=== PATIENT | female | born 1955 | race Caucasian/White ===

== ENCOUNTER 2025-07-12 20:18 | Observation (INO) | payer OTHER, SELFPAY ==
--- OUTSIDE RECORDS SUMMARY | 2025-07-11 21:28 | XMS_ITS | Encounter Summary ---
Author Organization [facility] Address [address] [place] [address] Care Team Providers Care Veterinary Laboratory Diagnostician Name Role Phone Paxton Leal MD Primary Care Provider Jas Rosales MD Unavailable [phone] Sebastian Bailey MD Unavailable Unavailable Aaron Dang MD Unavailable [phone] Reason for Visit * Reason Comments Chest Pain Pt BIBEMS from home w complaint of CP and SOB x25 minutes. NSR on EMS EKG. Encounter Details Date Type Department Care Team (Late st Contact Info) Description 07/11/2025 9:28 PM TOOL AND PRODUCTION PLANNER - 07/11/2025 9:29 PM TOOL AND PRODUCTION PLANNER Emergency ER at [address] [address] Discharge Disposition: Left Against Medical Advice/Discontinued Care Social History Tobacco Use Types Packs/Day Years Used Date Smoking Tobacco: Never Smokeless Tobacco: Never Alcohol Use Standard Drinks/Week Comments Yes 2 (1 standard drink = 0.6 oz pur e alcohol) rarely Hunger Vital Sign Answer Date Recorded Within the past 12 months, y ou worried that your food would run out before you got the money to buy more. Never true 10/06/19 22 Within the past 12 months, t he food you bought just didn't last and you didn't have money to get more. 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 Answer Date of Assessment Author No 10/06/2021 7:46 AM Jorge Esquivel RN * Is person blind or have serious difficulty seeing? Answer Date of Assessment Author No 10/06/2021 7:46 AM Jorge Esquivel RN * Does person have serious difficulty walking/climbing stairs? Answer Date of Assessment Author Yes 10/06/2021 7:46 AM Jorge Esquivel RN * Does person have difficulty dressing/bathing? Answer Date of Assessment Author Yes 10/06/2021 7:46 AM Jorge Esquivel RN * Does person have difficulty doing errands alone? Answer Date of Assessment Author Yes 10/06/2021 7:46 AM Jorge Esquivel RN documented as of this encounter Mental Status * Does person have difficulty concentrating/remembering/making decisions? Answer Entry Date Author No 10/06/2021 7:46 AM Jorge Esquivel RN documented in this encounter Medications at Time of Discharge butalbital-aceta minophen-caffein e (Fioricet) 50-325-40 MG tablet TAKE ONE TO TWO TABLETS BY MOUTH EVERY 4 HOURS NEEDED (NOT TO EXCEED 6 TABLETS PER 24 HOURS) 01/14/2025 Calcium Carb-Cholecalcif jian 500-15 MG-MCG Take by mouth Cyanocobalamin (B-12) 1000 MCG TABS Take by mouth once daily DULoxetine (CYMBALTA) 60 MG capsule Take 60 mg by mouth once daily Extended release escitalopram (LEXAPRO) 10 MG tablet Take 10 mg by mouth once daily 0 06/07/2018 HYDROcodone-acet aminophen (Gibbs) 10-325 MG tablet Take by mouth every 4 hours 07/08/2022 levothyroxine (Synthroid) 175 MCG tablet Take 1 (one) tablet by mouth once daily losartan (Cozaar) 50 MG tablet 1 (one) tablet 02/24/2024 mometasone (Elocon) 0.1 % ointment APPLY TO AFFECTED AREAS ON BODY TWICE DAILY NEEDED FOR FLARES. 12/11/2024 Multiple Vitamins-Mineral s (CENTRUM ADULTS PO) Take by mouth once daily predniSONE (Deltasone) 10 MG tablet Take 1 (one) tablet by mouth once daily 08/28/2024 raloxifene (Evista) 60 MG tablet Take 1 (one) tablet by mouth once daily 02/01/2023 solifenacin (Vesicare) 5 MG tablet Take 1 (one) tablet by mouth once daily 04/01/2025 SUMAtriptan (Imitrex) 25 MG tablet PLEASE SEE ATTACHED FOR DETAILED DIRECTIONS traZODone (DESYREL) 100 MG tablet Take 1 Tab by mouth at bedtime. 90 Tab 1 07/08/2013 documented as of this encounter ED Notes * Donna Palumbo RN - 07/11/2025 9:26 PM CST Pt declined seeing a provider even though one was immediately available to see her. Declined vitals, labs, and all other intervention. States her daughter is coming to pick her up and she is going toa different hospital. Informed of the risks of leaving [facility] prior to any evaluation, pt still wishesto leave despite this. AND PRODUCTION PLANNER documented in this encounter Plan of Treatment Upcoming Encounters Date Type Department Care Team (Late st Contact Info) Description 07/22/2025 9:45 AM TOOL AND PRODUCTION PLANNER Office Visit [facility] Orthopedics [address] [facility] [address] [place] [address] Rona Aponte PA-C [address] [facility] [address] [place] [address] documented as of this encounter Visit Diagnoses Not on filedocumented in this encounter Care Teams Veterinary Laboratory Diagnostician Relationship Specialty [place] [address] [facility] [address] [place] [address] PCP - General Internal Medicine 08/28/13 [place] [address] [facility] [address] [place], [place] [id number] Pulmonary Disease 12/12/13 [place] [address] [facility] [address] [place] [address] Otolaryngology 12/12/13 [place] [address] [facility] [address] [place] [address] Orthopedic Surgery 08/22/17 documented as of this encounter
--- NOTE | ~2025-07-12 | NM_ITS ---
EXAMINATION: NM sindhu stress w perfusion DATE: 07/14/2025 12:49 INDICATION: Chest pain. TECHNIQUE: Rest images were obtained following intravenous administration of 10.8 mCi Tc99m tetrofosmin (Myoview). The patient was infused intravenously with Lexiscan (regadenoson). Then, 32.7 mCi Tc99m tetrofosmin (Myoview) was administered intravenously, and stress images were obtained. Data was shelli nstructed into short axis and horizontal and vertical long axis SPECT images. Gated SPECT images were also obtained. COMPARISON: None. FINDINGS: There is no definite reversible or fixed perfusion abnormality to suggest ischemia or infarction. There is no segmental wall motion abnormality. Left ventricular ejection fraction measures 62%. IMPRESSION: 1. No definite ischemia or infarct. 2. Normal left ventricular ejection fraction measuring 62%. Reviewed, dictated and finalized at location E. MANAGER
--- NOTE | ~2025-07-12 | XR_ITS ---
Examination: XR chest 2V Clinical History: CHEST PAIN Comparison: None Technique: PA and Lateral Findings: Spinal stimulator. Cardiomediastinal silhouette normal size and configuration. Lungs clear. A few tiny calcified granulomata. Left midlung and basilar scar. No acute bony abnormality. IMPRESSION: 1. No acute cardiopulmonary findings. Reviewed, dictated and finalized at location R. CITY PLANNER
[2025-07-12 20:20] VITALS: BP 172/76; PULSE 77; RESP 18; TEMP 36.5; O2SAT 100
--- NOTE | 2025-07-12 20:20 | ECG_ITS ---
Test Date: 2025-07-12 20:36:47 Measurements Intervals [place] Rate: 82 P: 164 AK: 199 QRS: 70 QRSD: 117 T: 64 QT: 403 QTc: 472 Interpretive Statements SINUS RHYTHM INCOMPLETE RIGHT BUNDLE BRANCH BLOCK BASELINE ARTIFACT- II, III, AVR, AVL ,AVF, V1-V6 BORDERLINE ECG No previous ECG available for comparison Electronically Signed On 07-13-2025 09:22:10 FOLDER TAPER OPERATOR by Jorge Tello D.O.
[2025-07-12 20:30] VITALS: PULSE 76
[2025-07-12] MEDS: ASPIRIN 81 MG CHEWABLE TABLET 324 MG PO (20:55)
[2025-07-12 21:02] LABS: Hematocrit 42.4 % (37.0-47.0); Hemoglobin 14.5 g/dL (12.0-15.0); Immature Granulocyte Percent A 0.2 % (0-0.5); Lymphocytes Absolute Auto 2.19 K/mm3 (0.9-3.2); Mean Corpuscular HGB Conc 34.2 g/dl (32-36); Mean Corpuscular Hemoglobin 31.8 pg (26-34); Mean Corpuscular Volume 93.0 fl (80-100); Nucleated Red Blood Cells Absolute Auto 0.000 K/mm3 (0.0-0.012); Nucleated Red Blood Cells Perc 0.0 % (0.0-0.2); Platelet Count Result 282 k/mm3 (150-375); Red Blood Count 4.56 M/mm3 (4.2-5.4); White Blood Count 5.9 K/mm3 (4.5-10.0)
[2025-07-12 21:13] LABS: INR 1.0; Prothrombin Time 13.7 Seconds (11.1-14.7)
[2025-07-12 21:14] LABS: Partial Thromboplastin Time 25.9 Seconds (22.3-36.8)
--- NOTE | 2025-07-12 21:27 | ED.CHESTPAIN ---
HPI - Chest Pain General Chief Complaint: Chest Pain Stated Complaint: chest pain Time Seen by Provider: 07/12/25 20:42 Source: patient Mode of arrival: ambulatory Limitations: no limitations History of Present Illness HPI narrative: Patient is a 70-year-old female presents to the emergency department accompanied by family complaining of irregular heartbeat, chest tightness, shortness of breath. Patient notes over the past about 2 weeks she has been having episodes which about once a day she will get a sensation in which she feels like her heart is beating irregularly and fast and this lasted about 20 minutes, has not seen anyone for it yet. Patient notes last night with the sensation she also started to have some chest tightness and shortness of breath and pain in her upper back and bilateral jaw and she went to [facility] and was placed in a wheelchair in the waiting room and sat there for a while and ended up leaving without receiving a workup. Patient notes tonight around 6:00 p.m. she had another episode in which she started to feel occur chest was tight and short of breath and pain in her bilateral jaw and her upper back, notes that she has been getting intermittent feeling like her heart is beating irregularly with it to. Patient denies any history of heart disease, has never seen a heart doctor. Patient denies being a smoker. Patient denies history of high blood pressure being on medications. Patient admits to history of high cholesterol but is not on medications because it caused muscle aches. Patient denies being a diabetic. Patient denies any recent illness or recent injuries. Patient denies any history of wearing a Holter monitor. Patient admits to having low thyroid and taking thyroid medications. Patient does admit to caffeine use occasionally. Patient denies any melena, hematochezia, vomiting, diarrhea, abdominal pain, focal weakness, numbness, cough, fever. Patient does admit to associated nausea with her symptoms. Related Data Allergies Allergy/AdvReac Type Severity Reaction Status Date / Time No Known Allergies Allergy Verified 07/12/25 21:17 Review of Systems Review of Systems: A 10 system review of systems was completed on the patient and is negative except for what is stated in the HPI. Nursing and ancillary documentation was reviewed. Exam Narrative: CONST: No acute distress. Well nourished. HENMT: Head is normocephalic and atraumatic. Moist mucous membranes. No posterior oropharynx erythema. EYES: No scleral icterus. No conjunctival injection or pallor. PERRL. NECK: No meningeal signs. RESP: Able to speak in full sentences. Normal respiratory effort. CTAB. CARDIO: Regular rate. Regular rhythm. 2+ DP and radial pulses bilaterally. GI: Nondistended. No tenderness to palpation. Soft. : No CVA tenderness to palpation. SKIN: No rashes or lesions noted on exposed skin. NEURO: Oriented x3. Moves all extremities. EXTREM/MSK/BACK: No pedal edema. PSYCH: Normal affect. Course Vital Signs Vital signs: Vital Signs Temperature 97.7 F 07/12/25 20:20 Pulse Rate 77 07/12/25 20:20 Respiratory Rate 18 07/12/25 20:20 Blood Pressure 172/76 H 07/12/25 20:20 Pulse Oximetry 100 07/12/25 20:20 Oxygen Delivery Room Air 07/12/25 20:20 Temperature 97.7 F 07/12/25 20:20 Pulse Rate 73 07/12/25 23:42 Respiratory Rate 18 07/12/25 23:42 Blood Pressure 132/62 07/12/25 23:42 Pulse Oximetry 97 07/12/25 23:42 Oxygen Delivery Room Air 07/12/25 20:20 [facility] Narrative Medical decision making narrative: Patient presents with the above complaint. Initial vitals are remarkable for no significant abnormalities. Physical examination as noted above. Plan discussed: Laboratory analysis, EKG, chest x-ray, Zofran, aspirin, continuous cardiac monitoring, continuous pulse oximetry. On reassessment patient is resting comfortably appearing no acute distress. We discussed results, plan of care. Shared decision making performed regarding patient heart score and MACE, patient agrees with plan of care for admission for further cardiac evaluation. I spoke with the hospitalist on-call who has accepted the patient for admission. Differential Diagnosis Differential Diagnosis: ACS, pneumonia, pulmonary embolism, dysrhythmia, myocarditis, pericarditis. Lab Data [facility] Lab Attestation statement: I personally reviewed the patient's lab results. Lab results narrative: CBC is without any significant abnormalities. Coags are within normal limits. D-dimer 0.36. Comprehensive metabolic panel reveals a creatinine 1.07, no old creatinine on file to compare to. TSH is 0.045, free T4 is 1.05, total T3 is 0.95. Lipase is 53. BNP is 258. Troponin is less than 0.012 and repeat troponin is less than 0.012. 07/12/25 20:52 07/12/25 20:52 Labs: Lab Results 07/12/25 07/12/25 07/12/25 Range/Units 20:51 20:52 23:24 WBC 5.9 (4.5-10.0) K/mm3 RBC 4.56 (4.2-5.4) M/mm3 Hgb 14.5 (12.0-15.0) g/dL Hct 42.4 (37.0-47.0) % MCV 93.0 (80-100) fl MCH 31.8 (26-34) pg MCHC 34.2 (32-36) g/dl RDW 12.3 (11.5-14.5) % Plt Count 282 (150-375) k/mm3 MPV 9.0 (7.4-10.4) fl Immature Gran % (Auto) 0.2 (0-0.5) % Neut % (Auto) 49.0 (45.5-73.1) % Lymph % (Auto) 37.1 (18.3-44.2) % [place] % (Auto) 10.3 H (2.6-8.5) % Eos % (Auto) 2.9 (0-4.4) % Baso % (Auto) 0.5 (0.2-1.2) % Lymph # (Auto) 2.19 (0.9-3.2) K/mm3 [place] # (Auto) 0.6 (0.1-0.6) K/mm3 Eos # (Auto) 0.2 (0-0.3) K/mm3 Baso # (Auto) 0.0 (0.0-0.1) K/mm3 Abs Immat Gran (auto) 0.01 (0.00-0.031) K/mm3 Absolute Neuts (auto) 2.9 (1.3-6.7) K/mm3 Absolute Nucleated RBC 0.000 (0.0-0.012) K/mm3 Nucleated RBC % 0.0 (0.0-0.2) % PT 13.7 (11.1-14.7) Seconds INR 1.0 APTT 25.9 (22.3-36.8) Seconds D-Dimer 0.36 (<0.48) ug/mL Sodium 139 (137-145) mmol/L Potassium 3.5 (3.4-5.0) mmol/L Chloride 104 (98-107) mmol/L Carbon Dioxide 29 (22-30) mmol/L Anion Gap 6 (4-12) mmol/L BUN 16 (7-17) mg/dL Creatinine 1.07 H (0.7-1.0) mg/dL Estim Creat Clear Calc 42 ml/min Estimated GFR 50 L (59 - ) Glucose 86 (65-110) mg/dL Calcium 9.4 (8.4-10.2) mg/dL Magnesium 1.8 (1.6-2.3) mg/dL Total Bilirubin 0.3 (0.2-1.3) mg/dL AST 28 (14-36) U/L ALT 15 (6-35) U/L Alkaline Phosphatase 76 (38-126) U/L Troponin I < 0.012 < 0.012 (0.000-0.034) ng/mL NT-Pro-B Natriuret Pep 258 H (19.9-100) pg/mL Total Protein 8.7 H (6.3-8.2) g/dL Albumin 4.4 (3.5-5.1) g/dL Lipase 53 (23-300) U/L TSH (Reflex) 0.045 L (0.465-4.68) uIU/mL Free T4 1.05 (0.78-2.19) ng/dL Total T3 0.95 (0.82-1.58) NG/ML Imaging Data Attestation: I personally reviewed and interpreted this imaging study as follows: My impression: No acute cardiopulmonary process. ECG Data EKG #1: Attestation: I personally reviewed and interpreted this ECG as follows: ECG completion date: 07/12/25 ECG completion time: 23:10 Prior ECG tracings: not available for review Interpretation: Rate of 72, rhythm is sinus rhythm, axis is normal, no ST elevations or depressions, P 186 milliseconds, no old EKG on file for comparison. Discharge Plan Discharge Clinical Impression: Palpitations Chest pain Qualifiers: Chest pain type: unspecified Qualified Code(s): R07.9 - Chest pain, unspecified Patient Disposition: Still a Patient Condition: Stable Patient Language: Korean Follow-up/Referrals: PHYSICIAN NOT ON STAFF,NONSTAFF [Primary Care Provider] Time of Disposition: 00:26 Quality HEART score for chest pain patients History: moderately suspicious ECG: normal Age: > or = to 65 years Risk factors: 1 or 2 risk factors Troponin: < or = to 1x normal limit Heart score: 4
[2025-07-12 21:37] LABS: Alanine Aminotransferase 15 U/L (6-35); Albumin Level 4.4 g/dL (3.5-5.1); Alkaline Phosphatase 76 U/L (38-126); Anion Gap 6 mmol/L (4-12); Aspartate Amino Transferase 28 U/L (14-36); Bilirubin,Total 0.3 mg/dL (0.2-1.3); Blood Urea Nitrogen 16 mg/dL (7-17); Calcium 9.4 mg/dL (8.4-10.2); Carbon Dioxide 29 mmol/L (22-30); Chloride 104 mmol/L (98-107); Estimated CRCL calculation 42 ml/min; Estimated Glomerular Filt Rate 50; Glucose 86 mg/dL (65-110); Lipase 53 U/L (23-300); Potassium 3.5 mmol/L (3.4-5.0); Sodium 139 mmol/L (137-145); Total Protein 8.7 g/dL (6.3-8.2)
[2025-07-12 21:49] LABS: Troponin I < 0.012 ng/mL (0.000-0.034)
[2025-07-12] MEDS: ONDANSETRON INJ 4 MG/2 ML VIAL IV PUSH (21:54)
[2025-07-12 21:59] VITALS: BP 141/74; PULSE 75; RESP 16; O2SAT 99
--- OUTSIDE RECORDS SUMMARY | 2025-07-12 22:12 | XMS_ITS | Encounter Summary ---
Author Organization [facility] Address [address] [place] [address] Care Team Providers Care Motorcycle Subassembly Repairer Name Role Phone Paxton Leal MD Primary Care Provider Jas Rosales MD Unavailable [phone] Sebastian Bailey MD Unavailable Unavailable Aaron Dang MD Unavailable [phone] Encounter Details Date Type Department Care Team (Late st Contact Info) Description 02/17/2020 [facility]NAL [facility] DEPT Unknown, Provider Social History Tobacco Use Types Packs/Day Years Used Date Smoking Tobacco: Never Smokeless Tobacco: Never Alcohol Use Standard Drinks/Week Comments Yes 2 (1 standard drink = 0.6 oz pure alcohol) socially - one to two times per month Comments No Sex and Gender Information Value Date Recorded Sex Assigned at Female 11/09/2023 6:07 PM CDT Legal Sex Female 6:11 AM LEAD MATERIAL HANDLER Gender Identity Female 07/27/2017 5:23 PM LEAD MATERIAL HANDLER Sexual Orientation Straight 11/09/2023 6: 07 PM CDT Occupation Industry Job Start Date Job End Date 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 Answer Date of Assessment Author No 05/24/2019 5:00 AM Afsaneh Neri RN * Is person blind or have serious difficulty seeing? Answer Date of Assessment Author No 05/24/2019 5:00 AM Afsaneh Neri RN * Does person have serious difficulty walking/climbing stairs? Answer Date of Assessment Author Yes 05/24/2019 5:00 AM Afsaneh Neri RN * Does person have difficulty dressing/bathing? Answer Date of Assessment Author No 05/24/2019 5:00 AM Afsaneh Neri RN * Does person have difficulty doing errands alone? Answer Date of Assessment Author No 05/24/2019 5:00 AM Afsaneh Neri RN documented as of this encounter Mental Status * Does person have difficulty concentrating/remembering/making decisions? Answer Entry Date Author No 05/24/2019 5:00 AM Afsaneh Neri RN documented in this encounter Plan of Treatment Upcoming Encounters Date Type Department Care Team (Late st Contact Info) Description 07/22/2025 9:45 AM LEAD MATERIAL HANDLER Office Visit [facility] Orthoped[facility] [address] [facility] [address] [place] [phone] Rona Aponte, PA-C [address] [facility] [address] [place] [address] documented as of this encounter Visit Diagnoses Not on filedocumented in this encounter Additional Health Concerns Infection Onset Date Last Indicated Resolved Time COVID-19 Under Investigation 08/07/2022 08/07/2022 08/07/2022 9:26 PM LEAD MATERIAL HANDLER documented as of this encounter Care Teams Motorcycle Subassembly Repairer Relationship Specialty [place] [address] [facility] [address] [place] [address] PCP - General Internal Medicine 08/28/13 [place] [address] [facility] [address] [place] [address] Pulmonary Disease 12/12/13 [place] [address] [facility] [address] [place] [address] Otolaryngology 12/12/13 [place] [address] [address] Orthopedic Surgery 08/22/17 documented as of this encounter
--- OUTSIDE RECORDS SUMMARY | 2025-07-12 22:12 | XMS_ITS | Encounter Summary ---
Author Organization [facility] Address [address] [place] [address] Care Team Providers Care Dental Ceramist Name Role Phone Paxton Leal MD Primary Care Provider Encounter Details Date Type Department Care Team (Latest Contact Info) Description 2003 Outpatient Historical [facility] Cayla Loza MD [address] [place] [phone] HYPOCALCEMIA (Primary Dx) Social History Tobacco Use Types Packs/Day Years Used Date Smoking Tobacco: Never Assessed Comments Unknown Sex and Gender Information Value Date Recorded Sex Assigned at Not on file Legal Sex Female 2:53 AM CHEMICAL ANALYTICAL SAMPLER Gender Identity Not on file Sexual Orientation Not on file documented as of this encounter Plan of Treatment Not on file documented as of this encounter Visit Diagnoses Diagnosis Hypocalcemia- Primary documented in this encounter Care Teams Dental Ceramist Relationship Specialty [place] [address] [address] PCP - General Internal Medicine 09/06/16 documented as of this encounter
--- OUTSIDE RECORDS SUMMARY | 2025-07-12 22:12 | XMS_ITS | Encounter Summary ---
Author Organization [facility] Address [address] [place] [address] Care Team Providers Care Restuarant Crew Worker Name Role Phone Paxton Leal MD Primary Care Provider Encounter Details Date Type Department Care Team (Late st Contact Info) Description 05/26/2003 Outpatient Historical [facility] Family Medicine Tab [address] [place] [address] Cayla Loza MD [address] [facility] [place] [address] Social History Tobacco Use Types Packs/Day Years Used Date Smoking Tobacco: Never Assessed Comments Unknown Sex and Gender Information Value Date Recorded Sex Assigned at Not on file Legal Sex Female 2:53 AM COASTAL AND ESTUARY SPECIALIST Gender Identity Not on file Sexual Orientation Not on file documented as of this encounter Plan of Treatment Not on file documented as of this encounter Visit Diagnoses Not on filedocumented in this encounter Care Teams Restuarant Crew Worker Relationship Specialty [place] [address] [phone] PCP - General Internal Medicine 09/06/16 documented as of this encounter
--- OUTSIDE RECORDS SUMMARY | 2025-07-12 22:12 | XMS_ITS | Encounter Summary ---
Author Organization [facility] Address [address] [place] [address] Care Team Providers Care Denture Technician Name Role Phone Paxton Leal MD Primary Care Provider Encounter Details Date Type Department Care Team (Late st Contact Info) Description 07/22/2003 Outpatient Historical [facility] Family Medicine Tab [address] [facility] [place] [place] [address] Cayla Loza MD [address] [facility] [place] [address] Social History Tobacco Use Types Packs/Day Years Used Date Smoking Tobacco: Never Assessed Comments Unknown Sex and Gender Information Value Date Recorded Sex Assigned at Not on file Legal Sex Female 2:53 AM SAP TECHNICAL DEVELOPER Gender Identity Not on file Sexual Orientation Not on file documented as of this encounter Plan of Treatment Not on file documented as of this encounter Visit Diagnoses Not on filedocumented in this encounter Care Teams Denture Technician Relationship Specialty Start [place] [address] [phone] PCP - General Internal Medicine 09/06/16 documented as of this encounter
--- OUTSIDE RECORDS SUMMARY | 2025-07-12 22:12 | XMS_ITS | Encounter Summary ---
Author Organization [facility] Address [address] [place] [address] Care Team Providers Care Easter Bunny Name Role Phone Paxton Leal MD Primary Care Provider Encounter Details Date Type Department Care Team (Latest Contact Info) Description 07/01/2003 Outpatient Historical [facility] Cayla Loza MD [address] [place] [address] PURE HYPERCHOLESTEROLEM (Primary Dx) Social History Tobacco Use Types Packs/Day Years Used Date Smoking Tobacco: Never Assessed Comments Unknown Sex and Gender Information Value Date Recorded Sex Assigned at Not on file Legal Sex Female 2:53 AM ELECTRONIC PAGE MAKEUP SYSTEM OPERATOR Gender Identity Not on file Sexual Orientation Not on file documented as of this encounter Plan of Treatment Not on file documented as of this encounter Visit Diagnoses Diagnosis Pure hypercholesterolemia- Primary documented in this encounter Care Teams Easter Bunny Relationship Specialty Start [place] [address] [address] PCP - General Internal Medicine 09/06/16 documented as of this encounter
--- OUTSIDE RECORDS SUMMARY | 2025-07-12 22:12 | XMS_ITS | Clinical Summary ---
Author Organization [facility] Address [address] [place] [address] Phone Care Team Providers Care Goodwill Ambassador Name Role Phone Paxton Leal MD Primary Care Provider Allergies Active Allergy Reactions Criticality Noted Date Comments Amoxicillin Trihydrate Unknown 09/26/2022 Amoxicillin-Pot Clavulanate Diarrhea Low 08/25/2017 Atorvastatin Other (See Comments) 11/29/2015 MUSCLE PAIN Clavulanic Acid Nausea and Vomiting Low 07/25/2013 Codeine Rash Medium 10/04/2009 Fenofibrate Unknown 11/29/2015 Pravastatin Unknown,Other (See Comments) 11/29/2015 Muscle pain Medications FLUVIRIN 4524-4096, PF, 45 mcg (15 mcg x 3)/0.5 mL Syringe syringe 6 Active levothyroxine 125 mcg tablet Take 125 mcg by mouth daily residence supervisor. Active DULoxetine (CYMBALTA) 60 mg Capsule, Delayed Release(E.C.) Take 1 Capsule (60 mg) by mouth daily. 30 Capsule 5 6 Active blood sugar diagnostic (ACCU-CHEK ACTIVE TEST) Strip 1 Strip. 3 Active traZODone (DESYREL) 100 mg tablet Take 100 mg by mouth. 3 Active meclizine (ANTIVERT) 25 mg tabletIndication s:Vertigo Take 1 Tablet (25 mg) by mouth 3 times daily as needed for Dizziness. 30 Tablet 7 Active HYDROcodone-acet aminophen (NORCO) 10-325 mg Tablet Take 1 tablet by oral route every 4 - 6 hours as needed for pain 60 Tablet 06/05/2022 1:20 PM CDT 2 Active fentaNYL (DURAGESIC) 25 mcg/hr patch apply 1 patch by transdermal route every 72 hours 10 Patch 06/07/2022 5:27 PM CDT 2 Active fentaNYL 37.5 mcg/hour Patch 72HR apply 1 patch by transdermal route every 72 hours to intact skin 10 Patch 2 Active HYDROcodone-acet aminophen (NORCO) 10-325 mg Tablet take 1 tablet by oral route every 4 - 6 hours as needed for pain 60 Tablet 07/11/2022 5:51 PM FACILITIES OPERATOR 2 Active DULoxetine (CYMBALTA) 60 mg Capsule, Delayed Release(E.C.) TAKE ONE CAPSULE BY MOUTH ONCE DAILY 90 Capsule 1 07/11/2022 5:51 PM FACILITIES OPERATOR 2 Active butalbital-aceta minophen-caffein e (FIORICET) 50-325-40 mg tablet Take 1 Tablet by mouth every 4 hours. Max of 6 tablets per 24 hours. 30 Tablet 07/17/2022 2:04 PM FACILITIES OPERATOR 2 Active fentaNYL (DURAGESIC) 50 mcg/hr patch Apply 1 patch by transdermal route every 72 hours to intact skin 10 Patch 07/26/2022 6:24 PM FACILITIES OPERATOR 2 Active ondansetron (ZOFRAN) 4 mg Tablet Take 1 (one) tablet by mouth every 6 hours as needed for Nausea/Vomiting 10 Tablet 08/08/2022 11:49 AM FACILITIES OPERATOR 3 Active levothyroxine 150 mcg tablet TAKE ONE TABLET BY MOUTH ONCE DAILY 90 Tablet 3 08/30/2022 5:33 PM FACILITIES OPERATOR 3 Active cyanocobalamin 1,000 mcg Tablet Take by mouth daily. Active diphenhydrAMINE (BENADRYL) 25 mg capsule Take 1 Capsule (25 mg) by mouth nightly as needed for Allergies. 10 Capsule 3 Active guaiFENesin (HUMIBID) 400 mg Tablet Take 1 Tablet (400 mg) by mouth 4 times daily. 40 Tablet 3 Active triamcinolone acetonide (KENALOG) 0.1 % Ointment apply by topical route 2 times every day a thin layer to the chest 30 Gram 11/03/2022 5:26 PM CDT 3 Active DULoxetine (CYMBALTA) 60 mg Capsule, Delayed Release(E.C.) take 1 capsule by oral route 2 times every day 180 Capsule 1 11/03/2022 5:26 PM CDT 3 Active levothyroxine 50 mcg tablet take 1 tablet by oral route every day 90 Tablet 3 3 Active levothyroxine 175 mcg tablet Take 1 Tablet (175 mcg) by mouth daily. 90 Tablet 11/05/2022 12:31 PM CDT 3 Active gabapentin (NEURONTIN) 300 mg capsule TAKE ONE CAPSULE BY MOUTH AT BEDTIME 90 Capsule 3 02/22/2023 5:23 PM CDT 3 Active traZODone (DESYREL) 100 mg tablet Take 1 Tablet (100 mg) by mouth daily at bedtime 90 Tablet 3 02/22/2023 5:23 PM CDT 3 Active alendronate (FOSAMAX) 70 mg tablet take 1 tablet by oral route every week in the morning, at least 30 min before first food, beverage, or medication of day 12 Tablet 3 12/12/2022 12:09 PM CDT 3 Active HYDROcodone-acet aminophen (NORCO) 10-325 mg Tablet Take 1 Tablet by mouth every 4-6 hours as needed for pain. Max Daily Amount: 6 Tablets 60 Tablet 12/12/2022 12:09 PM CDT 3 Active methylPREDNISolo ne (Medrol, Escobar,) 4 mg Tablets, Dose Pack take as directed on package 21 Tablet 12/12/2022 5:31 PM CDT 3 Active escitalopram oxalate (LEXAPRO) 20 mg tablet TAKE ONE TABLET BY MOUTH ONCE DAILY 90 Tablet 3 01/11/2023 1:17 PM CDT 3 Active amoxicillin (AMOXIL) 500 mg capsule Take 4 Capsules (2000 mg) by mouth one hour prior to appointment. 4 Capsule 3 Active azelastine (ASTELIN) 137 mcg/actuation nasal spray spray 2 spray by intranasal route 2 times every day in each nostril as needed for runny nose 30 mL 3 02/02/2023 5:34 PM CDT 3 Active betamethasone dipropionate (DIPROSONE) 0.05 % Ointment apply by topical route every day a thin layer to the affected area(s) 30 Gram 02/02/2023 5:34 PM T 3 Active raloxifene (EVISTA) 60 mg tablet take 1 tablet by oral route every day 90 Tablet 3 02/02/2023 5:34 PM CDT 3 Active levothyroxine 200 mcg tablet Take 1 Tablet (200 mcg) by mouth daily. 90 Tablet 3 02/02/2023 5:34 PM CDT 3 Active predniSONE (DELTASONE) 10 mg tablet Take 4 tablets po qd x 4 days, then 3 tablets po qd x 4 days, then 2 tablets po qd x 4 days, then 1 tablet po qd x 4 days, then 1 tablet po QOD x 4 days then stop. 42 Tablet 02/21/2023 3:15 PM CDT 3 Active HYDROcodone-acet aminophen (NORCO) 10-325 mg Tablet take 1 tablet by oral route every 4 - 6 hours as needed for pain 60 Tablet 03/13/2023 10:04 AM T 3 Active clobetasoL (TEMOVATE) 0.05 % Cream Apply topically to affected skin 2 times a day as needed for rash for 2 weeks on/2 weeks off 60 Gram 3 03/15/2023 8:37 AM T 3 Active HYDROcodone-acet aminophen (NORCO) 5-325 mg tablet Take 1 tablet by mouth every 8 hours as needed for severe pain greater than 8/10 90 Tablet 04/04/2023 5:37 PM T 3 Active butalbital-aceta minophen-caffein e (FIORICET) 50-325-40 mg tablet TAKE ONE TO TWO TABLETS BY MOUTH EVERY 4 HOURS NEEDED (NOT TO EXCEED 6 TABLETS PER 24 HOURS) 30 Tablet 04/04/2023 5:37 PM T 3 Active Active Problems Problem Noted Date Diagnosed Date S/P hip replacement 06/10/2016 Chest pain on breathing 11/29/2015 Diabetes mellitus type 2, diet-controlled 2015 Hyperlipidemia 11/29/2015 Hypothyroidism 11/29/2015 Depressive disorder 11/29/2015 Hyperglycemia 10/05/2009 Fever 10/04/2009 Viral syndrome 10/04/2009 Headache(784.0) 10/04/2009 UTI (urinary tract infection) 10/04/2009 Encounters Date Type Department Care Team Description 06/24/2025 External Device Data ST[facility] ABSTRACTION Provider, Abstract 05/09/2025 3:45 PM CDT - 05/09/2025 11:59 PM CDT Hospital Encounter [facility] Yon [facility] [address] [place] [address] Paxton Leal MD Discharge Disposition: Home or Self Care from Last 3 Months Immunizations Immunization Administration Dates Next Due (ADACEL/BOOSTRIX)(10 YR UP) TDAP VACCINE, 0.5ML, IM 07/08/2013 (PNEUMOVAX 23)(50 YRS UP) PN EUMOCOCCAL POLYSACCHARIDE (PPV23) 0.5 ML, IM 03/25/2010 Influenza Seasonal Unspecified Formulation IM PNEUMOVAX (PPSV23) pneumococ sharon polysaccharide 23-valent Vaccine 12/04/2009 Zoster Vaccine Live SQ 07/08/2013 Family History Medical History Relation Name Comments Healthy Daughter Heart Disease Father Breast Cancer Mother Depression Mother High Cholesterol Mother Hypertension Mother Depression Son Healthy Son High Cholesterol Son Hypertension Son Relation Name Status Comments Daughter Alive Father Maternal Grandfather Maternal Grandmother Mother Son Alive Social History Tobacco Use Types Packs/Day Years Used Date Smoking Tobacco: Never Smokeless Tobacco: Never Tobacco Cessation:Counseling Given: Not Answered Alcohol Use Standard Drinks/Week Comments Yes 5 (1 standard drink = 0.6 oz pur e alcohol) Occassional glass of wine Comments No Sex and Gender Information Value Date Recorded Sex Assigned at Not on file Legal Sex Female 2:53 AM FACILITIES OPERATOR Gender Identity Not on file Sexual Orientation Not on file Last Filed Vital Signs Vital Sign Reading Time Taken Comments Blood Pressure 112/62 09/26/2022 5:19 PM FACILITIES OPERATOR Pulse 67 09/26/2022 5:19 PM FACILITIES OPERATOR Temperature 36.6 C (97.9 F) 09/26/2022 5:19 PM FACILITIES OPERATOR Respiratory Rate 16 09/26/2022 5:19 PM FACILITIES OPERATOR Oxygen Saturation 96% 09/26/2022 5:19 PM FACILITIES OPERATOR Inhaled Oxygen Concentration - - Weight 72.6 kg (160 lb) 09/26/2022 5:19 PM FACILITIES OPERATOR Height 160 cm (5' 3) 09/26/2022 5:19 PM FACILITIES OPERATOR Body Mass Index 28.34 09/26/2022 5:19 PM FACILITIES OPERATOR Plan of Treatment Health Maintenance Due Date Last Done Comments DIABETES ANNUAL FOOT EXAM 1971 DIABETES ANNUAL RETINAL EXAM 1971 COLORECTAL SCREENING 1998 Colorectal Cancer Screening 1998 FIT-DNA Q 3 years 1998 FIT/FOBT Q 1 year 1998 Flex Sig/CT Colonography Q 5 years 1998 RSV VACCINE (60+ or ) (1 - Risk 50-74 years 1-dose series) 2003 PNEUMOCOCCAL VACCINE 50+ YEA RS (2 of 2 - PCV) 03/25/2011 03/25/2010, 12/04/2009 ZOSTER VACCINE (2 of 3) 09/02/2013 07/08/2013 LDL CHOLESTEROL ANNUAL 11/28/2016 11/29/2015 DIABETES MICROALBUMIN ANNUAL SCREEN 06/10/2017 06/10/2016 DTAP/TDAP/TD VACCINES (2 - T d or Tdap) 07/08/2023 07/08/2013 INFLUENZA VACCINE (#1) 2025 4, 05/01/2023, 06/06/2022, Additional history exists COVID-19 Vaccine ( - 2024-2 6 season) 2025 05/07/2024, 07/21/2022, 06/04/2021, Additional history exists DIABETES HBA1C Q 6 MONTHS 10/02/20252024, 12/02/2024, 03/18/2024, Additional history exists OSTEOPOROSIS SCREENING 05/09/2030 5, 04/11/2025, 04/11/2025, Additional history exists Medical Devices Implanted Type Area Midwife Practitioner Device Identifier Shelf Expiration Date Model / Serial / Lot Hip Description:metal present in L hip Breast Description:1985, and replac ed in 2002 Procedures Procedure Name Priority Date/Time Associated Diagnosis Comments CT BONE DENS STUDY 1+ SITE AXIAL Routine 05/09/2025 4:00 PM CDT Postmenopausal osteoporosis MICROALBUMIN/CREATI NINE RATIO, RANDOM UR Routine 06/10/2016 9:22 AM CDT Type 2 diabetes mellitus without complication, without long-term current use of insulin (CMS/HCC) HEMOGLOBIN A1C Routine 06/10/2016 9:22 AM CDT Type 2 diabetes mellitus without complication, without long-term current use of insulin (CMS/HCC) LIPID PANEL Routine 11/29/2015 5:15 AM CDT from Last 3 Months or Most Recently Relevant to Health Maintenance Results * CT BONE DENS STUDY 1+ SITE AXIAL (05/09/2025 4:00 PM CDT) Anatomical Region Laterality Modality Computed Tomogra phy 05/09/2025 4:01 PM CDT Narrative 05/12/2025 6:39 AM CDT EXAM: CT BONE DENS STUDY 1+ SITE AXIAL STUDY DATE05/09/2025 4:00 PM INDICATION: Screening for osteoporosis Attached is the QCT Bone Mineral Density Reports for [employer]. For the spine, a true volumetric BMD measurement was made and, rather than using T-Scores, was compared to guideline thresholds from the [employer]. INCIDENTAL LIMITED CT FINDINGS: There is atelectasis in the bilateral lower lobes. Scattered calcified granulomas in spleen, likely sequela of old granulomatous disease. There are subcentimeter nonobstructing bilateral renal stones. There is posterior spinal fusion at L4-L5. There are bilateral hip arthroplasties is a neurostimulator device overlying the left posterior back with leads overlying the lower thoracic spine. Procedure Note Hattie Patel MD - 05/15/2025 EXAM: CT BONE DENS STUDY 1+ SITE AXIAL STUDY DATE05/09/2025 4:00 PM INDICATION: Screening for osteoporosis Attached is the QCT Bone Mineral Density Reports for [employer]. For the spine, a true volumetric BMD measurement was made and, rather than using T-Scores, was compared to guideline thresholds from the [employer]. INCIDENTAL LIMITED CT FINDINGS: There is atelectasis in the bilateral lower lobes. Scattered calcified granulomas in spleen, likely sequela of old granulomatous disease. There are subcentimeter nonobstructing bilateral renal stones. There is posterior spinal fusion at L4-L5. There are bilateral hip arthroplasties is a neurostimulator device overlying the left posterior back with leads overlying the lower thoracic spine. Paxton Leal MD CT ORDERABLES Final Resul t * MICROALBUMIN/CREATININE RATIO, RANDOM UR (06/10/2016 9:22 AM CDT) MICROALBUMIN, URINE <1.2 mg/dL 06/10/2016 5:05 PM CDT [facility] CREATININE, URINE 111.0 29.0 - 226.0 mg/dL 06/10/2016 5:05 PM T [facility] Comment: Reference Range varies with fluid intake and diet. Urine URINE SPECIMEN OBTAINED BY CLEAN CATCH PROCEDURE / Unknown Collection / Unknown 06/10/2016 9:22 AM CDT 06/10/2016 9:22 AM CDT Narrative [facility] - 06/10/2016 5:05 PM CDT Condition Microalbumin/Creat ratio Normal Males <17 Normal Females <25 Microalbuminuria Males 17-299 Microalbuminuria Females 25-299 Overt proteinuria >=300 Unable to calculate urine microalbumin/creatinine ratio due to below linear urine microalbumin result. Moses Mayer DO URINE ORDERABLES Leonor l Result [facility]# [id number] [address] [place] [address] * HEMOGLOBIN A1C (06/10/2016 9:22 AM CDT) HEMOGLOBIN A1C 5.4 4.0 - 6.0 % 06/10/2016 4:14 PM T [facility] Comment:Note: Effective as o f 08/28/2015 a new methodology, Turbidimetric inhibition immunoassay (TINIA),has been implemented. EST. AVG GLUCOSE, A1C 108 mg/dL 06/10/2016 4:14 PM CDT [facility] Blood Venipuncture - L ab Collect / Unknown 06/10/2016 9:22 AM CDT 06/10/2016 9:22 AM CDT Moses Mayer DO CHEMISTRY ORDERABLES Final Result [facility] CLIA# [id number] [address] [facility] [place] [address] * (ABNORMAL) LIPID PANEL (11/29/2015 5:15 AM CDT) CHOLESTEROL 255(H) <200 mg/dL 11/29/2015 6:08 AM CDT [facility] TRIGLYCERIDE 215(H) <150 mg/dL 11/29/2015 6:08 AM T [facility] HDL 44 40 - 59 mg/dL 11/29/2015 6:08 AM T [facility] LDL CALCULATED 168(H) <100 mg/dL 11/29/2015 6:08 AM T [facility] NON-HDL CHOLESTEROL 211(H) <130 mg/dL 11/29/2015 6:08 AM T [facility] Blood Venipuncture - L ab Collect / Unknown 11/29/2015 5:15 AM CDT 11/29/2015 5:20 AM CDT Narrative [facility] - 11/29/2015 6:08 AM CDT TOTAL CHOLESTEROL mg/dL Desirable <200 Borderline high 200-239 High >=240 TRIGLYCERIDES mg/dL Normal <150 Borderline high 150-199 High 200-499 Very high >=500 HDL CHOLESTEROL mg/dL Low <40 Normal 40-59 Desirable >=60 LDL CHOLESTEROL mg/dL Optimal <100 Low risk 100-129 Borderline high 130-159 High 160-189 Very high >=190 NON HDL CHOLESTEROL mg/dL Optimal <130 Near Optimal 130-159 Borderline High 160-189 High 190-219 Very high >=220 Based on AHA/NCEP Guidelines Henok Carballo MD CHEMISTRY ORDERABLES Final Result [facility] GREG# [id number] [address] [place] [address] from Last 3 Months or Most Recently Relevant to Health Maintenance Insurance RX MEDIMPACT Member Subscriber Plan / Payer (Ef fective 2018-Present) Name:Rosa Pro Relation to Subscriber:Self Name:Rosa Pro Payer ID:Not on file Group ID:[id number] Type:RX Medicare Part D Address: [place] [address] [address] [facility] [place] [address] [facility] MCR Advance Directives For more information, please contact: [phone] * Full Code (Latest Code Status on File) Date Activated Date Inactivated Comments 11/29/2015 5:32 AM 11/29/2015 4:56 PM * Full Code Date Activated Date Inactivated Comments 10/04/2009 6:21 PM 10/09/2009 6:50 PM * Full Code Date Activated Date Inactivated Comments 10/04/2009 3:04 PM 10/04/2009 6:21 PM Care Teams Goodwill Ambassador Relationship Specialty [place] [address] [address] PCP - General Internal Medicine 09/06/16
--- OUTSIDE RECORDS SUMMARY | 2025-07-12 22:12 | XMS_ITS | Encounter Summary ---
Author Organization [facility] Address [address] [place] [address] Care Team Providers Care Card Dealer Name Role Phone Paxton Leal MD Primary Care Provider Encounter Details Date Type Department Care Team (Late st Contact Info) Description 11/30/1998 Outpatient Historical [facility] Elizabeth Rodas MD Social History Tobacco Use Types Packs/Day Years Used Date Smoking Tobacco: Never Assessed Comments Unknown Sex and Gender Information Value Date Recorded Sex Assigned at Not on file Legal Sex Female 2:53 AM MEDICAL SECRETARY TEACHER Gender Identity Not on file Sexual Orientation Not on file documented as of this encounter Plan of Treatment Not on file documented as of this encounter Visit Diagnoses Not on filedocumented in this encounter Care Teams Card Dealer Relationship Specialty [place] [address] [phone] PCP - General Internal Medicine 09/06/16 documented as of this encounter
--- OUTSIDE RECORDS SUMMARY | 2025-07-12 22:12 | XMS_ITS | Encounter Summary ---
Author Organization [facility] Address [address] [place] [address] Care Team Providers Care Strainer Mill Operator Name Role Phone Paxton Leal MD Primary Care Provider Encounter Details Date Type Department Care Team (Late st Contact Info) Description 07/01/2003 Outpatient Historical [facility] [address] [facility] [address] Cayla Loza MD [address] [facility] [place] [address] Social History Tobacco Use Types Packs/Day Years Used Date Smoking Tobacco: Never Assessed Comments Unknown Sex and Gender Information Value Date Recorded Sex Assigned at Not on file Legal Sex Female 2:53 AM SHOP TECH Gender Identity Not on file Sexual Orientation Not on file documented as of this encounter Plan of Treatment Not on file documented as of this encounter Visit Diagnoses Not on filedocumented in this encounter Care Teams Strainer Mill Operator Relationship Specialty [place] [address] [phone] PCP - General Internal Medicine 09/06/16 documented as of this encounter
--- OUTSIDE RECORDS SUMMARY | 2025-07-12 22:12 | XMS_ITS ---
Author Organization [facility] Address [address] [place] [address] Care Team Providers Care Lithopone Charger Name Role Phone Paxton Leal MD Primary Care Provider Jas Rosales MD Unavailable [phone] Sebastian Bailey MD Unavailable Unavailable Aaron Dang MD Unavailable [phone] Active Problems * This document contains information received from the source organization and may not represent a complete record from that organization. Problem Noted Date Diagnosed Date Primary osteoarthritis of right knee 11/16/2023 Status post left knee replacement 10/25/2021 Primary osteoarthritis of left knee 10/04/2021 Spondylolisthesis at L4-L5 level 05/23/2019 Influenza B 07/27/2017 Cholecystitis, chronic 01/11/2016 Calculus of gallbladder with cholecystitis 01/10 History of hip replacement, total 05-21-1509/14 Avascular necrosis of bones of both hips 014 Hip pain 04/15/2014 Bronchiectasis 04/15/2014 Fatigue 04/15/2014 Difficulty sleeping 04/15/2014 SOB (shortness of breath) 04/15/2014 Acute bronchitis 03/29/2014 Sinusitis, chronic 12/12/2013 Obstructive lung disease 12/12/2013 Screening for condition 02/21/2011 Overview (05/07/2015): Adult Abstraction Problem List Screening Stress Test:normal 08/20/2007 [facility] Colonoscopy: Result: 09/24/2007 Diverticulosis and hemorrhoids; Dr. Amos Migraine 03/25/2010 Diverticulosis, sigmoid 09/24/2007 Internal hemorrhoids 09/24/2007 Hyperlipidemia 08/10/2007 Lobular carcinoma in situ of right breast 1985 Overview (03/22/2022): Right; increases risk for breast cancer in either breast S/p bilateral risk-reducing mastectomies with reconstruction (reduces risk by >90%) 09/17/10: fam h/o breast and ovarian. Pt going to look into details further to help clarify if she or any family members would be appropriate for BRCA testing. She needs one additional relative with breast or ovarian, which would also be the case for covering testing in her mother. Her cousin should be a candidate for testing now, though lives [place] of state. 03/02/2017 [facility] sent on pt's mother, Vinicius Painting ( 02/08/23) (kofi): Negative for cancer causing gene. She did have a variant of uncertain significance of APC [[id number] ([id number]) (aka [id number] ([id number]))]. [facility] panel genetic testing after 02/22/2016 includes: APC, NAE, BARD1, BMPR1A, BRCA1, BRCA2, BRIP1, CDH1, CDK4, CDKN2A, CHEK2, EPCAM (large rearrangement only), GREM1, MLH1, MSH2, MSH6, MUTYH, NBN, PALB2, PMS2, POLD1, POLE, PTEN, RAD51C, RAD51D, SMAD4, STK11, TP53. 03/17/2022 addendum: [employer] update. Previous VUS APC downgraded to being of no significance. Depression Hypothyroidism Asthma Chronic rhinitis Current Treatment and Therapy Plans No current plan information found. Past Treatment and Therapy Plans No past plan information found. Lifetime Dose Tracking * Chemical Lifetime Dose Automatic Entry Manual Entr y Dose Length Product 7.04 mGy-cm 7.04 mGy-cm 0 mGy-cm Resolved Problems Problem Noted Date Diagnosed Date Resolved Date Cough 02/12/2019 03/12/2019 Cough 07/25/2017 08/22/2017 Cough 03/29/2014 12/17/2014
--- OUTSIDE RECORDS SUMMARY | 2025-07-12 22:12 | XMS_ITS | Encounter Summary ---
Author Organization [facility] Address [address] [place] [address] Care Team Providers Care Type Disk Quality Control Supervisor Name Role Phone Paxton Leal MD Primary Care Provider Encounter Details Date Type Department Care Team (Late st Contact Info) Description 04/22/1999 Outpatient Historical [facility] Elizabeth Rodas MD Social History Tobacco Use Types Packs/Day Years Used Date Smoking Tobacco: Never Assessed Comments Unknown Sex and Gender Information Value Date Recorded Sex Assigned at Not on file Legal Sex Female 2:53 AM SHIPPING TECHNICIAN Gender Identity Not on file Sexual Orientation Not on file documented as of this encounter Plan of Treatment Not on file documented as of this encounter Visit Diagnoses Not on filedocumented in this encounter Care Teams Type Disk Quality Control Supervisor Relationship Specialty [place] [address] [phone] PCP - General Internal Medicine 09/06/16 documented as of this encounter
--- OUTSIDE RECORDS SUMMARY | 2025-07-12 22:12 | XMS_ITS | Encounter Summary ---
Author Organization [facility] Address [address] [place] [address] Care Team Providers Care Landscape Gardener Name Role Phone Paxton Leal MD Primary Care Provider Encounter Details Date Type Department Care Team (Latest Contact Info) Description 07/22/2003 Outpatient Historical [facility] Cayla Loza MD [address] [place] [phone] HYPOTHYROIDISM NOS (Primary Dx) Social History Tobacco Use Types Packs/Day Years Used Date Smoking Tobacco: Never Assessed Comments Unknown Sex and Gender Information Value Date Recorded Sex Assigned at Not on file Legal Sex Female 2:53 AM BUSINESS BANKER Gender Identity Not on file Sexual Orientation Not on file documented as of this encounter Plan of Treatment Not on file documented as of this encounter Visit Diagnoses Diagnosis Unspecified hypothyroidism- Primary documented in this encounter Care Teams Landscape Gardener Relationship Specialty [place] [address] [phone] PCP - General Internal Medicine 09/06/16 documented as of this encounter
--- OUTSIDE RECORDS SUMMARY | 2025-07-12 22:12 | XMS_ITS ---
Patient Health Record Created on: July 12, 2025 ROSA MURPHY External Reference #: [id number] : [id number] Sex: Female Author Organization [facility] Address [address] [place] [address] [place] [address] Phone [phone] Care Team Providers Care .Net Architect Name Role Phone SHAILA MICHAEL, JORGE Primary Care Provider Jacey Shukla MD, [facility] [phone] Allergies Allergen (clinical drug ingredient) Drug/Non Drug Allergy documented on EMR Reaction Allergy Type Onset Date Status Substance with 8-rnhrpzj-4-methylgluta ryl-coenzyme A reductase inhibitor mechanism of action (substance) Statins Unknown Drug Allergy Active Reason For Referral No Information Medications Medication SIG (Take, Route, Frequency, Duration) Notes Start Date End Date Diagnosis (ICD Code) Status Escitalopram Oxalate 10 MG Tablet 1 tablet Oral Once a day Active traZODone HCl 100 MG Tablet 1 tablet at bedtime Oral Once a day Active DULoxetine HCl 60 MG Capsule Delayed Release Particles 1 capsule Oral Once a day Active Levothyroxine Sodium 150 MCG Tablet 1 tablet on an empty stomach in the morning Orally Once a day Active Gabapentin 300 MG Capsule 1 capsule Orally Once a day; Duration: 30 day(s) Active HYDROcodone-Acetamin ophen 10-325 MG Tablet 1 tablet Oral up to once a day prn severe pain; Duration: 20 days Radiculopathy, lumbar region (ICD_10 - M54.16) Active Social History Tobacco Use: Social History Observation Description Date Details (start date - stop date) Never Smoker NA - NA Sex Observation Social History Observation Description Sex Observation Female Social History Tobacco Use: Social Info Question Answer Notes Tobacco Use/Smoking Are you a nonsmoker Section Notes: The patient is currently une mployed. She is with 2 children. She denies tobacco, alcohol or illicit drug abuse Problems Problem Type SNOMED Code ICD Code Dates Problem Status W/U Status Risk Notes Problem Acquired spondylolisthesis (853660794) Spondylolisthesis , lumbar region (M43.16) Added On:03/2019 Active confirmed L4 on L5 Problem Solitary sacroiliitis (957806885) Sacroiliitis, not elsewhere classified (M46.1) Added On:03/2019 Active confirmed Problem Lumbosacral spondylosis without myelopathy (31331638) Spondylosis without myelopathy or radiculopathy, lumbar region (M47.816) Added On:03/2019 Active confirmed Problem Lumbosacral spondylosis without myelopathy (disorder) (35034812) Spondylosis without myelopathy or radiculopathy, lumbosacral region (M47.817) Added On:03/2019 Active confirmed Problem Degeneration of lumbar intervertebral disc (26425834) Other intervertebral disc degeneration, lumbar region (M51.36) Added On:03/2019 Active confirmed Problem Degeneration of lumbosacral intervertebral disc (13997038) Other intervertebral disc degeneration, lumbosacral region (M51.37) Added On:03/2019 Active confirmed Problem Disorder of sacrum (32859710) Other specified dorsopathies, lumbar region (M53.86) Added On:03/2019 Active confirmed Problem Lumbar radiculopathy (116731005) Radiculopathy, lumbar region (M54.16) Added On:03/2019 Active confirmed Problem Lumbosacral radiculopathy (5513010) Radiculopathy, lumbosacral region (M54.17) Added On:03/2019 Active confirmed Problem Enthesopathy of hip region (80473842) Trochanteric bursitis, unspecified hip (M70.60) Added On:03/2019 Active confirmed Problem Post-laminectomy syndrome (46983894) Postlaminectomy syndrome, not elsewhere classified (M96.1) Added On:06/07 Active confirmed Problem Spinal stenosis of lumbar region (66096518) Subluxation stenosis of neural canal of lumbar region (M99.23) Added On:03/2019 Active confirmed Problem Spinal stenosis of lumbar region (09618354) Osseous stenosis of neural canal of lumbar region (M99.33) Added On:03/2019 Active confirmed Problem Spinal stenosis of lumbar region (04270329) Intervertebral disc stenosis of neural canal of lumbar region (M99.53) Added On:03/2019 Active confirmed Problem Neurogenic claudication (258593693) Spinal stenosis, lumbar region with neurogenic claudication (M48.062) Added On:03/2019 Active confirmed Plan Of Treatment No Information Insurance Providers Payer Name Payer Address Payer Phone Subscriber Number Group Number Insured Name Patient Relationship to Insured Coverage Start Date Coverage End Date zEssence [id number] ROSA MURPHY Self - patient is the insured Medical (General) History Medical History History ICD Code Type 2 Diabetes Depression Fibromyalgia Breast cancer Surgical History Surgery Date(Month/Year) Cholecystectomy 2011 Left total hip arthroplasty 2013 Right total hip arthroplasty 2017 Bilateral mastectomy 1986 L4-[address]James Mckenna 2019
--- OUTSIDE RECORDS SUMMARY | 2025-07-12 22:12 | XMS_ITS | Clinical Summary ---
Author Organization [facility] Address [address] [place] [address] Care Team Providers Care Tire Vulcanizer Name Role Phone Paxton Leal MD Primary Care Provider [phone] Allergies Active Allergy Reactions Criticality Noted Date Comments Moztipw-Ndm-Wgf Reductase Inhibitors Hives,Muscle pain Medium 04/22/2019 Medications traZODone (DESYREL) 100 mg tablet TAKE 1 TABLET BY MOUTH EVERYDAY AT BEDTIME 1 9 Active escitalopram (LEXAPRO) 20 mg tablet Take 1 tablet (20 mg total) by mouth daily Active acetaminophen-a spirin-caffeine (Excedrin Extra Strength) 250-250-65 mg per tablet take 1-4 tablets by Oral route every day Active cyanocobalamin (Vitamin B-12) 1,000 mcg tablet Take 1 tablet (1,000 mcg total) by mouth once Active DULoxetine DR (CYMBALTA) 60 mg capsule Take 1 capsule (60 mg total) by mouth 2 (two) times a day Active HYDROcodone-bridger taminophen (NORCO) 10-325 mg per tablet Take 1 tablet by mouth 5 Active levothyroxine (SYNTHROID) 200 mcg tablet Take 1 tablet (200 mcg total) by mouth daily 5 Active raloxifene (EVISTA) 60 mg tablet Take 1 tablet (60 mg total) by mouth daily Active SUMAtriptan (IMITREX) 25 mg tablet 1 tablet (25 mg total) once as needed for migraine 4 Active butalbital-acet aminophen-caffe ine (ESGIC) 50-325-40 mg per tablet Take 1 tablet by mouth every 4 (four) hours as needed for headaches Active calcium carbonate-vitam in D3 1,250 mg (500 mg elemental)-600 unit tablet Take by mouth Acti ve FOLIC ACID ORAL Take by mouth Active Active Problems Problem Noted Date Diagnosed Date Rash and nonspecific skin eruption 11/07/2024 Assessment & Plan (11/07/2024 9:34 AM CDT): Spreading down her back. Would recommend biopsy per derm for definitive diagnosis. Pain of right heel 11/07/2024 Assessment & Plan (11/07/2024 9:35 AM CDT): C/o heel pain with walking. XR shows developing right heel spur. Consider evaluation by podiatry next. Polyarthralgia 10/23/2024 Overview (11/05/2024): 10/23/24: Cr 1.02, CBC nl, ESR 11, CRP <0.3mg/dL AVISE 10/23/24: ROSALES 1:640 speckled, RA33 IgG 43, UH18-RuM 5.0 XR 11/01/24: R hand: trapezium is resected. Subchondral cysts in base of 1st metacarpal. L hand: trapezium is resected. Subchondral cysts in base of 1st metacarpal. R foot: small developing plantar calcaneal enthesophyte. L foot: unremarkable Assessment & Plan (11/07/2024 9:34 AM CDT): 69-year-old female with PMHx of asthma, osteoporosis, depression, anxiety, fibromyalgia, T2DM, cataracts, migraines, breast cancer, spondylolisthesis, spinal stenosis s/p lumbar fusion, AVN s/p ZAHIRA, DJD, and thyroid disease c/o chronic widespread pain, fatigue, and generalized stiffness. Notes pain in the bilateral radial wrists with activity and stiffness in the left ankle. There is diffuse soft tissue tenderness noted on exam consistent with prior diagnosis of fibromyalgia. There is no obvious joint synovitis on exam. Rheumatologic evaluation with AVISE panel showed a +ORSALES 1:640 but was otherwise unremarkable for any other autoantibodies. RA33 IgG and IgA were elevated however this is a new marker and clinical relevance has yet to be determined. In the setting of low suspicion for RA, this marker remains nondiagnostic. XR of the bilateral hands and feet show DJD in the bilateral hands and a heel spur in the right foot. Work up is unremarkable for a rheumatologic disease. Symptoms remain most consistent with prior diagnosis of fibromyalgia and mechanical pain from DJD. Unfortunately, she is on several medications with increased risk for interactions and would be hesitant to add any other medications for fibromyalgia treatment at this time. Will defer management back to her PCP. Follow up as needed. Seen with Dr. Abernathy. Assessment & Plan (10/23/2024 11:25 AM CDT): 69-year-old female with PMHx of asthma, osteoporosis, depression, anxiety, fibromyalgia, T2DM, cataracts, migraines, breast cancer, spondylolisthesis, spinal stenosis s/p lumbar fusion, AVN s/p ZAHIRA, DJD, and thyroid disease c/o chronic widespread pain, fatigue, and generalized stiffness. Notes pain in the bilateral radial wrists with activity and stiffness in the left ankle. There is diffuse soft tissue tenderness noted on exam today consistent with prior diagnosis of fibromyalgia. There is no obvious joint synovitis on exam. Symptoms and exam are suspicious for fibromyalgia and mechanical pain from DJD. Will order appropriate serologies and radiographs to further evaluate and rule out any underlying inflammatory arthritis. Should our work up remain unremarkable for an autoimmune arthritis, will defer back to PCP. Unfortunately, she is on several medications with increased risk for interactions and would be hesitant to add any other medications for fibromyalgia treatment at this time. Follow up in 2 weeks. Sooner if needed. Seen with Dr. Abernathy. Lumbar spinal stenosis 07/08/2020 Assessment & Plan (07/08/2020 2:47 PM SHEETER MACHINE OPERATOR): Assessment: L5-S1 lumbar spinal stenosis with facet arthropathy L4-5 posterior fusion, healing status indeterminate Plan: Recommended treatment is a CT scan of the lumbar spine to look at the extent and status of the fusion and the juxtafusional levels. Medrol dose pack to help with pain. I had her sign a medical release of records from Dr. Shukla so we could determine what recent treatment she has received. Surgical History Surgery Date Site/Laterality Comments TOTAL KNEE ARTHROPLASTY 08/07/2021 - 08/06/2022 Left TOTAL HIP ARTHROPLASTY 08/07/2017 - 08/06/2018 Left TOTAL HIP ARTHROPLASTY 08/07/2013 - 08/06/2014 Right CHOLECYSTECTOMY 08/07/2015 - 08/06/2016 HAND ARTHROPLASTY Bilateral 1st [facility] joint arthrhoplasty - 2015, 2016 CATARACT EXTRACTION 08/07/2017 - 08/06/2018 LUMBAR FUSION 08/07/2018 - 08/06/2019 SPINAL CORD STIMULATOR IMPLANT 08/07/2020 - 08/06/2021 Social History Tobacco Use Types Packs/Day Years Used Date Smoking Tobacco: Never Tobacco Cessation:Counseling Given: Not Answered Comments Unknown Sex and Gender Information Value Date Recorded Sex Assigned at Not on file Legal Sex Female 12:48 PM SHEETER MACHINE OPERATOR Gender Identity Not on file Sexual Orientation Not on file Last Filed Vital Signs Vital Sign Reading Time Taken Comments Blood Pressure 120/62 11/07/2024 8:51 AM CDT Pulse 88 11/07/2024 8:51 AM CDT Temperature 36.6 C (97.8 F) 04/22/2019 3:40 PM CDT Respiratory Rate 18 04/22/2019 3:40 PM CDT Oxygen Saturation 96% 11/07/2024 8:51 AM CDT Inhaled Oxygen Concentration - - Weight 74.4 kg (164 lb) 11/07/2024 8:51 AM CDT Height 160 cm (5' 3) 11/07/2024 8:51 AM CDT Body Mass Index 29.05 11/07/2024 8:51 AM CDT Plan of Treatment Health Maintenance Due Date Last Done Comments Breast Cancer Screening-Mammogram 1955 Colon Cancer Screening-Colonoscopy 1955 Depression Screening 1955 Fall Risk Assessment 1955 Hepatitis C Screening 1955 Osteoporosis Screening-Bone Density Scan 1955 Hepatitis B Screening 1971 Well Visit 65+ 2018 Zoster Vaccine (3 of 3) 03/14/2019 01/18/20 19, 07/08/2013, 12/04/2012 DTaP/Tdap/Td Vaccine (3 - Td or Tdap) 07/08/2023 07/08/2013, 12/04/2012 Covid-19 Vaccine (4 - 2024-2 6 season) 2025 05/25/2021, 10/22/2020, 09/24/2020 Influenza Vaccine (#1) 2025 4, 05/08/2021, 04/01/2020, Additional history exists Pneumococcal vaccine 65+ Completed 021, 06/13/2018, 03/25/2010, Additional history exists Insurance [facility] [address] [place] [address] [facility] Care Teams Tire Vulcanizer Relationship Specialty Start Date End Date Paxton Leal MD PCP - General 04/22/19
--- OUTSIDE RECORDS SUMMARY | 2025-07-12 22:12 | XMS_ITS | Encounter Summary ---
Author Organization [facility] Address [address] [place] [address] Care Team Providers Care Doorshaker Name Role Phone Paxton Leal MD Primary Care Provider Encounter Details Date Type Department Care Team (Late st Contact Info) Description 07/16/2003 Outpatient Historical [facility] [address] [facility] [place] [address] Cayla Loza MD [address] [place] [address] Social History Tobacco Use Types Packs/Day Years Used Date Smoking Tobacco: Never Assessed Comments Unknown Sex and Gender Information Value Date Recorded Sex Assigned at Not on file Legal Sex Female 2:53 AM UNIFIED COMMUNICATIONS ENGINEER Gender Identity Not on file Sexual Orientation Not on file documented as of this encounter Plan of Treatment Not on file documented as of this encounter Visit Diagnoses Not on filedocumented in this encounter Care Teams Doorshaker Relationship Specialty [place] [address] [id number] PCP - General Internal Medicine 09/06/16 documented as of this encounter
--- OUTSIDE RECORDS SUMMARY | 2025-07-12 22:12 | XMS_ITS | Encounter Summary ---
Author Organization [facility] Address [address] [place] [address] Care Team Providers Care Medical Accounting Clerk Name Role Phone Paxton Leal MD Primary Care Provider Encounter Details Date Type Department Care Team (Late st Contact Info) Description 07/06/1999 Outpatient Historical [facility] Elizabeth Rodas MD Social History Tobacco Use Types Packs/Day Years Used Date Smoking Tobacco: Never Assessed Comments Unknown Sex and Gender Information Value Date Recorded Sex Assigned at Not on file Legal Sex Female 2:53 AM ORTHOPEDIC PODIATRIST Gender Identity Not on file Sexual Orientation Not on file documented as of this encounter Plan of Treatment Not on file documented as of this encounter Visit Diagnoses Not on filedocumented in this encounter Care Teams Medical Accounting Clerk Relationship Specialty [place] [address] [address] PCP - General Internal Medicine 09/06/16 documented as of this encounter
--- OUTSIDE RECORDS SUMMARY | 2025-07-12 22:12 | XMS_ITS | Encounter Summary ---
Author Organization [facility] Address 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
--- OUTSIDE RECORDS SUMMARY | 2025-07-12 22:12 | XMS_ITS | Encounter Summary ---
Author Organization [facility] Address [address] [place] [address] Care Team Providers Care Graphics Editor Name Role Phone Paxton Leal MD Primary Care Provider Jas Rosales MD Unavailable [phone] Sebastian Bailey MD Unavailable Unavailable Shoshana Mario RN Unavailable Tena Aranda RN Unavailable [phone] Aaron Dang MD Unavailable [phone] Encounter Details Date Type Department Care Team (Late st Contact Info) Description 12/30/2015 [facility] Outpatient Visit [facility] [address] [place] [address] [place] [address] [address] Social History Tobacco Use Types Packs/Day Years Used Date Smoking Tobacco: Never Smokeless Tobacco: Never Alcohol Use Standard Drinks/Week Comments Yes 0 (1 standard drink = 0.6 oz pure alcohol) socially - one to two times per month Comments No Sex and Gender Information Value Date Recorded Sex Assigned at Female 11/09/2023 6:07 PM CDT Legal Sex Female 6:11 AM TELEMETRY TECHNICIAN Gender Identity Female 07/27/2017 5:23 PM TELEMETRY TECHNICIAN Sexual Orientation Straight 11/09/2023 6: 07 PM CDT Occupation Industry Job Start Date Job End Date 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 Answer Date of Assessment Author No 05/24/2014 11:47 AM Javon Fitzgerald RN * Is person blind or have serious difficulty seeing? Answer Date of Assessment Author No 05/24/2014 11:47 AM Javon Fitzgerald RN * Does person have serious difficulty walking/climbing stairs? Answer Date of Assessment Author Yes 05/24/2014 11:47 AM Javon Fitzgerald RN * Does person have difficulty dressing/bathing? Answer Date of Assessment Author No 05/24/2014 11:47 AM Javon Fitzgerald RN * Does person have difficulty doing errands alone? Answer Date of Assessment Author No 05/24/2014 11:47 AM Javon Fitzgerald RN documented as of this encounter Mental Status * Does person have difficulty concentrating/remembering/making decisions? Answer Entry Date Author No 05/24/2014 11:47 AM Javon Fitzgerald RN documented in this encounter Plan of Treatment Upcoming Encounters Date Type Department Care Team (Late st Contact Info) Description 07/22/2025 9:45 AM TELEMETRY TECHNICIAN Office Visit [facility] [address] [facility] [address] [place] [address] Rona Aponte PA-C [address] [address] documented as of this encounter Visit Diagnoses Not on filedocumented in this encounter Additional Health Concerns Infection Onset Date Last Indicated Resolved Time COVID-19 Under Investigation 08/07/2022 08/07/2022 08/07/2022 9:26 PM TELEMETRY TECHNICIAN documented as of this encounter Care Teams Graphics Editor Relationship Specialty [place] [address] [facility] [address] [place] [address] PCP - General Internal Medicine 08/28/13 [place] [address] [facility] [address] [place] [address] Pulmonary Disease 12/12/13 [place] [address] [facility] [address] [place] [address] Otolaryngology 12/12/13 Shoshana Mario RN Life Skills Instructor 03/11/14 05/23/19 Tena Aranda RN Life Skills Instructor 03/30/14 05/23/19 Aaron Dang MD Orthopedic Surgery 08/22/17 documented as of this encounter
--- OUTSIDE RECORDS SUMMARY | 2025-07-12 22:12 | XMS_ITS | Encounter Summary ---
Author Organization [facility] Address [address] [place] [address] Care Team Providers Care Fingernail Sculpturer Name Role Phone Paxton Leal MD Primary Care Provider Encounter Details Date Type Department Care Team (Late st Contact Info) Description 01/28/1999 Outpatient Historical [facility] Elizabeth Rodas MD Social History Tobacco Use Types Packs/Day Years Used Date Smoking Tobacco: Never Assessed Comments Unknown Sex and Gender Information Value Date Recorded Sex Assigned at Not on file Legal Sex Female 2:53 AM SOCK LINER Gender Identity Not on file Sexual Orientation Not on file documented as of this encounter Plan of Treatment Not on file documented as of this encounter Visit Diagnoses Not on filedocumented in this encounter Care Teams Fingernail Sculpturer Relationship Specialty [place] [address] [address] PCP - General Internal Medicine 09/06/16 documented as of this encounter
--- OUTSIDE RECORDS SUMMARY | 2025-07-12 22:12 | XMS_ITS | Encounter Summary ---
Author Organization [facility] Address 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
--- OUTSIDE RECORDS SUMMARY | 2025-07-12 22:12 | XMS_ITS | Clinical Summary ---
Author Organization [facility] Address [address] [place] [address] Care Team Providers Care Saw Operator Name Role Phone Paxton Leal MD Primary Care Provider Jas Rosales MD Unavailable [phone] Sebastian Bailey MD Unavailable Unavailable Aaron Dang MD Unavailable [phone] Source Comments [facility],non-owned Affiliates and Associated Physician Practices is amultiple site organization consisting of ambulatory clinics and hospital sitesin [place], [place], [place]. This disclosure is being madepursuant to the Care Everywhere program and may not contain all information available regarding this patient. Last updated 18.[facility] Allergies Active Allergy Reactions Criticality Noted Date Comments Amoxicillin-Pot Clavulanate Diarrhea Low 08/25/19 18 Augmentin Diarrhea Low 08/25/2017 Clavulanic Acid GI Discomfort Low 07/25/2013 Fenofibrate Headache Low 06/15/2011 Hmg-Coa-R Inhibitors GI Discomfort Low 07/25/2013 Atorvastatin Myalgias Low 03/29/2012 MUSCLE PAIN Pravastatin Myalgias,Headache Low 02/06/2012 Muscle pain Medications * This document contains information received from the source organization and may not represent a complete record from that organization. * Be aware that medications may not be up to date on this document. Alwaysverify current medications with the patient. traZODone (DESYREL) 100 MG tablet Take 1 Tab by mouth at bedtime. 90 Tab 1 3 Active DULoxetine (CYMBALTA) 60 MG capsule Take 60 mg by mouth once daily Extended release Active escitalopram (LEXAPRO) 10 MG tablet Take 10 mg by mouth once daily 0 8 Active Cyanocobalamin (B-12) 1000 MCG TABS Take by mouth once daily Active Multiple Vitamins-Minera ls (CENTRUM ADULTS PO) Take by mouth once daily Active HYDROcodone-bridger taminophen ([place]) 10-325 MG tablet Take by mouth every 4 hours 2 Active levothyroxine (Synthroid) 175 MCG tablet Take 1 (one) tablet by mouth once daily Active losartan (Cozaar) 50 MG tablet 1 (one) tablet 4 Active mometasone (Elocon) 0.1 % ointment APPLY TO AFFECTED AREAS ON BODY TWICE DAILY NEEDED FOR FLARES. 5 Active predniSONE (Deltasone) 10 MG tablet Take 1 (one) tablet by mouth once daily 5 Active SUMAtriptan (Imitrex) 25 MG tablet PLEASE SEE ATTACHED FOR DETAILED DIRECTIONS Active solifenacin (Vesicare) 5 MG tablet Take 1 (one) tablet by mouth once daily 5 Active raloxifene (Evista) 60 MG tablet Take 1 (one) tablet by mouth once daily 3 Active Calcium Carb-Cholecalci ferol 500-15 MG-MCG Take by mouth Active butalbital-acet aminophen-caffe ine (Fioricet) 50-325-40 MG tablet TAKE ONE TO TWO TABLETS BY MOUTH EVERY 4 HOURS NEEDED (NOT TO EXCEED 6 TABLETS PER 24 HOURS) 5 Active Active Problems Problem Noted Date Diagnosed Date Primary osteoarthritis of right knee 11/16/2023 Status post left knee replacement 10/25/2021 Primary osteoarthritis of left knee 10/04/2021 Spondylolisthesis at L4-L5 level 05/23/2019 Influenza B 07/27/2017 Cholecystitis, chronic 01/11/2016 Calculus of gallbladder with cholecystitis 01/10 History of hip replacement, total 10-15-15 09/14 Avascular necrosis of bones of both hips [...] now, [place]. 03/02/2017 [employer] Damien sent on pt's mother, Vinicius Painting ( 02/08/23) (kirby): Negative for cancer causing gene. She did have a variant of uncertain significance of APC [[id number] (p.[id number]) (aka [id number] ([id number]))]. [facility] panel genetic testing after 02/22/2016 includes: APC, NAE, BARD1, BMPR1A, BRCA1, BRCA2, BRIP1, CDH1, CDK4, CDKN2A, CHEK2, EPCAM (large rearrangement only), GREM1, MLH1, MSH2, MSH6, MUTYH, NBN, PALB2, PMS2, POLD1, POLE, PTEN, RAD51C, RAD51D, SMAD4, STK11, TP53. 03/17/2022 addendum: Myriad update. Previous VUS APC downgraded to being of no significance. Depression Hypothyroidism Asthma Chronic rhinitis Resolved Problems Problem Noted Date Diagnosed Date Resolved Date Cough 02/12/2019 03/12/2019 Cough 07/25/2017 08/22/2017 Cough 03/29/2014 12/17/2014 Encounters Date Type Department Care Team Description 07/11/2025 9:28 PM ORACLE DATABASE ADMINISTRATOR - 07/11/2025 9:29 PM ORACLE DATABASE ADMINISTRATOR Emergency ER at [facility] [id number] [place] [address] Discharge Disposition: Left Against Medical Advice/Discontinued Care 04/22/2025 11:00 AM CDT Office Visit [facility] [address] [place] [address], [address] [place] [address] Rona Aponte PA-C Primary osteoarthritis of right knee (Primary Dx); Acute pain of right knee 04/22/2025 10:55 AM CDT Ancillary Procedure [facility] - Radiology [address] [place] [id number] Rona Aponte PA-C Acute pain of right knee from Last 3 Months Immunizations Immunization Administration Dates Next Due INFLUENZA VACCINE 04/25/2013,05/27/2012 PNEUMOCOCCAL PPSV23 03/25/2010 TDAP (7yrs+) 07/08/2013 ZOSTER VACCINE, LIVE 07/08/2013 Family History Medical History Relation Name Comments Other Daughter Ana Lynch sees isac for high risk Cancer - Other Father [place] Father Cancer - Colon Maternal Aunt Asthma Mother Kenya Garima CAD (Coronary Artery Disease) Mother Kenya [place] Cancer - Breast Mother Kenya Garima unila teral: Living age 87; MyRisk negative except VUS, that was later downgraded High Cholesterol Mother Kenya Garima Hypertension Mother Kenya [place] Cancer - Ovarian Other mat cousin living ate 59. 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 Not on file Not on file Not on file Last Filed Vital Signs Vital Sign Reading Time Taken Comments Blood Pressure 135/78 08/07/2022 9:45 PM ORACLE DATABASE ADMINISTRATOR Pulse 78 08/07/2022 7:59 PM ORACLE DATABASE ADMINISTRATOR Temperature 36.7 C (98 F) 08/07/2022 7:59 PM ORACLE DATABASE ADMINISTRATOR Respiratory Rate 18 08/07/2022 7:59 PM ORACLE DATABASE ADMINISTRATOR Oxygen Saturation 98% 08/07/2022 9:14 PM ORACLE DATABASE ADMINISTRATOR Inhaled Oxygen Concentration 21% 04/02/2014 8 :02 AM CDT Weight 71.7 kg (158 lb) 08/07/2022 7:59 PM ORACLE DATABASE ADMINISTRATOR Height 160 cm (5' 3) 08/07/2022 7:59 PM ORACLE DATABASE ADMINISTRATOR Body Mass Index 27.99 08/07/2022 7:59 PM ORACLE DATABASE ADMINISTRATOR Plan of Treatment Upcoming Encounters Date Type Department Care Team (Late st Contact Info) Description 07/22/2025 9:45 AM ORACLE DATABASE ADMINISTRATOR Office Visit [facility] [id number] [facility], [facility] [address] [place] [address] Rona Aponte PA-C [address] [facility] [address] [place] [address] Health Maintenance Due Date Last Done Comments COLOGUARD (AGES 45-75) - COLON CA SCREENING 1955 CT COLONOGRAPHY - COLON CA SCREENING 1955 FIT - COLON CA SCREENING 1955 FLEX SIG - COLON CA SCREENING 1955 MAMMOGRAM 1955 MEDICARE AWV 12 MONTHS 1955 HEPATITIS C SCREENING 06/28/1971 Respiratory Syncytial Virus (RSV) Vaccine Pt: or over 60 yrs (1 - Risk 50-74 years 1-dose series) 2003 PNEUMOCOCCAL VACCINE 50+ (2 of 2 - PCV) 03/25/2011 03/25/2010 ZOSTER VACCINE (2 of 3) 09/02/2013 07/08/2013 LIPID TESTING 06/08/2018 06/08/2013, 07/08, 12/07/2011, Additional history exists DTAP/TDAP/TD VACCINES (2 - Td or Tdap) 07/08/2023 07/08/2013 DEPRESSION SCREENING 08/07/2024 COVID-19 VACCINE ( season) 2025 07/21/2022, 06/04/2021, 10/22/2020, Additional history exists COLON MONITORING 07/05/2026 07/05/2016 COLONOSCOPY - COLON CA SCREENING 07/05/2026 07/05/2016, 09/25/2007 Colorectal Cancer Screening 07/05/2026 BONE DENSITY TESTING Completed 05/09/2025, 05/09/2025, 04/11/2025, Additional history exists INFLUENZA VACCINE Completed 05/27/2025, , 05/01/2023, Additional history exists HEPATITIS B VACCINE Aged Out No longe r eligible based on patient's age to complete this topic HIB VACCINE Aged Out No longer eligi ble based on patient's age to complete this topic HPV VACCINE Aged Out No longer eligi ble based on patient's age to complete this topic MENINGOCOCCAL (Group B) VACCINE SHARED DECISION-MAKING Aged Out No longer eligible based on patient's age to complete this topic MENINGOCOCCAL GROUPS A/C/Y/W VACCINE Aged Out No longer eligible based on patient's age to complete this topic Medical Devices Implanted Type Area Animal Husbandry Manager Device Identifier Shelf Expiration Date Model / Serial / Lot Shell Pps Rnglc+ Sz 52 Implanted:Qty: 1 on 05/21/2014 by Raissa Ybarra MD at [facility] Left: Hip [employer] Inc 02/19/2024 [id number] / / [id number] Scrw Selftap Lo Prof Ti 6.5 X 30mm Implanted:Qty: 1 on 05/21/2014 by Raissa Ybarra MD at [facility] Left: Hip [employer] Inc 12/20/2023 [id number] / / [id number] Acetabulr Lining Size 23 36mm Implanted:Qty: 1 on 05/21/2014 by Raissa Ybarra MD at [facility] Left: Hip 02/18/2019 [id number] / / [id number] Implt Integr Por Rdcd Prox 11mm Implanted:Qty: 1 on 05/21/2014 by Raissa Ybarra MD at [facility] Left: Hip [employer] 04/21/2024 [id number] / / [id number] Hd Fem Cocr Mod Tpr 0 36mm Implanted:Qty: 1 on 05/21/2014 by Raissa Ybarra MD at [facility] Left: Hip [employer] Inc 12/20/2023 [id number] / / [id number] Wire K .045in X 5.5in Implanted:Qty: 1 on 10/31/2016 by Joanne Doss MD at [facility] Depuy Orthopedics Inc 5600-22-000 / / Stem Tprlok Microplast Hi Offst Sz 13 Implanted:Qty: 1 on 09/06/2017 by Aaron Dang MD at [facility] Right: Hip [employer] 12/10/2026 [id number] / / [id number] Head Fem 36mm Hip Blx D Biolox Optn G7 Implanted:Qty: 1 on 09/06/2017 by Aaron Dang MD at [facility] Right: Hip [employer] 02/03/2027 [id number] / / [id number] Slv Centering G7 -6mm Ofst Tpr Hip Ti Ty Implanted:Qty: 1 on 09/06/2017 by Aaron Dang MD at [facility] Right: Hip [employer] 03/31/2027 650-1064 / / [id number] Shell Actb 54mm Hip Lmt Hl Clr Cd Por G7 Implanted:Qty: 1 on 09/06/2017 by Aaron Dang MD at [facility] Right: Hip [employer] 07/18/2027 [id number] / / [id number] 30 Mm Screw Implanted:Qty: 1 on 09/06/2017 by Aaron Dang MD at [facility] Right: Hip 07/06/2027 / / [id number] Liner Actb G7 F Ntrl 36mm E1 Hip Implanted:Qty: 1 on 09/06/2017 by Aaron Dang MD at [facility] Right: Hip [employer] 08/06/2022 [id number] / / [id number] Lens Iol 0 D +19 Kary Bcnvx Acrsf Iq Ntr - [id number] Implanted:Qty: 1 on 12/05/2018 by Patsy Dodson MD at [facility] Right: Eye [employer] 04/06/2023 SN60WF.190 / [id number] / Lens Iol 0 D +18 Kary Bcnvx Acrsf Iq Ntr - [id number] Implanted:Qty: 1 on 12/19/2018 by Patsy Dodson MD at [facility] Left: Eye [employer] 03/06/2023 SN60WF.180 / [id number] / Graft Bone Grftn Dbm 5x2.5cm - [id number] Implanted:Qty: 1 on 05/23/2019 by Brennan Mckenna MD at [facility] Spine Lumbar [employer] Inc 12/12/2021 [id number] / [id number] / Spcr Spnl [id number] Cpstn Ptc Peek Lmbr Implanted:Qty: 1 on 05/23/2019 by Brennan Mckenna MD at [facility] Back Medtronic Sofamor Danek Spine 08/14/2026 [id number] / / [id number] Screw Set Ti 4.75mm Spne Nonster Implanted:Qty: 4 on 05/23/2019 by Brennan Mckenna MD at [facility] Back Medtronic Sofamor Dane[employer] Inc [id number] / / Julien Spnl 35mm 4.75mm Cd Hzn Solera Crv Implanted:Qty: 2 on 05/23/2019 by Brennan Mckenna MD at [facility] Back Medtronic Inc [id number] / / Screw 7.5mm 45mm 2 Ld Thrd Frm Ma Clr Cd Implanted:Qty: 4 on 05/23/2019 by Brennan Mckenna MD at [facility] Back Medtronic Inc [id number] / / Nrstm Impl Chrnc Pain Rs2 - [id number] Implanted:Qty: 1 on 03/18/2021 by Brennan Mckenna MD at [facility] Left: Back Med[employer]onic Inc 01/18/2022 [id number] / [id number] / Description:left flank Lead Ns 65cm Spc Surescan 3 Clmn 16 Implanted:Qty: 1 on 03/18/2021 by Brennan Mckenna MD at [facility] Spine Thoracic Med[employer]onic Inc 01/30/2025 [id number] / / [id number] Cmnt Bone Djo Srg Cblt 40gm Hvisc Strl Implanted:Qty: 1 on 10/04/2021 by Aaron Dang MD at [facility] Left: Knee [employer] 11/23/2022 600-15-000 / / [id number] Cmpnt Ptlr Std 31mm 3 Pg Kn Ser A Implanted:Qty: 1 on 10/04/2021 by Aaron Dang MD at [facility] Left: Knee [employer] 05/26/2026 [id number] / / [id number] Tray Tib 71mm As Mx Kn Intlk Cocr 1 Pc Implanted:Qty: 1 on 10/04/2021 by Aaron Dang MD at [facility] Left: Knee [employer] 06/25/2031 [id number] / / [id number] Cmpnt Fem Kn Lt Cr Cmnt Prm Vngrd Intlk Implanted:Qty: 1 on 10/04/2021 by Aaron Dang MD at [facility] Left: Knee [employer] 12/30/2030 [id number] / / [id number] Brng [id number] Vngrd Arcm Kn Ant Stab Implanted:Qty: 1 on 10/04/2021 by Aaron Dang MD at [facility] Left: Knee [employer] 09/22/2026 [id number] / / [id number] Procedures Procedure Name Priority Date/Time Associated Diagnosis Comments XR KNEE RIGHT 3VW Routine 04/22/2025 11: 04 AM CDT Acute pain of right knee DEXA BONE DENSITY PERIPHERAL Routine 04/11/2025 3:54 PM CDT Postmenopausal osteoporosis LIPID PROFILE Routine 06/08/2013 8:57 AM CDT Hyperlipidemia from Last 3 Months or Most Recently Relevant to Health Maintenance Results * XR Knee Right 3Vw (04/22/2025 11:04 AM CDT) Narrative [facility] [address] - 04/22/2025 11:04 AM CDT Please see progress note in Epic for results. Rona Aponte PA-C DIAGNOSTIC IMAGING ORDERAB LES Final Result [facility] [place] [address] * (ABNORMAL) LIPID PROFILE (06/08/2013 8:57 AM CDT) Cholesterol 314(H) 125 - 200 mg/dL [facility] Comment: Test Performed at: [facility] [id number] [address] [facility] [address] JAJA PALUMBO DO,MPH HDL Cholesterol 56 > OR = 46 mg/dL [facility] Triglycerides 369(H) <150 mg/dL [facility] LDL Calculated 184(H) <130 mg/dL (calc) [facility] Comment: Desirable range <100 mg/dL for patients with CHD or diabetes and <70 mg/dL for diabetic patients with known heart disease. CHOL/HDLC RATIO 5.6(H) < OR = 5.0 (calc) [facility] Non HDL Cholesterol 258(H) mg/dL (calc) [facility] Comment: Target for non-HDL cholesterol is 30 mg/dL higher than LDL cholesterol target. Blood specimen (specimen) BLOOD SPECIMEN / Unknown 06/08/2013 8:57 AM CDT 06/08/2013 8:57 AM CDT [facility] Syl Jauregui DO LAB - CHEMISTRY ORDERABLES Final Result [facility] [address] [place] [address] from Last 3 Months or Most Recently Relevant to Health Maintenance Insurance [facility] MEDIC[facility] * Guarantor: ROSA PRO Account Type Relation to Patient Date of Phone Billing Address Personal/Family 1955 [id number] [id number] Advance Directives Documents on File Type Date Recorded Patient Safety Lead Expl anation Adv Directive/Living Will/POA 01/13/2016 9:10 PM Adv Directive/Living Will/POA 05/27/2014 1:48 AM Adv Directive/Living Will/POA 09/14/2011 10:56 AM Advanced Directive & Durable Power of Cardiographer for Health Care * Full Code (Latest Code Status on File) Date Activated Date Inactivated Comments 10/04/2021 5:16 PM 10/06/2021 12:21 PM * Full Code Date Activated Date Inactivated Comments 05/23/2019 10:06 PM 05/28/2019 4:20 PM * Full Code Date Activated Date Inactivated Comments 09/06/2017 5:20 PM 09/10/2017 6:17 PM * Full Code Date Activated Date Inactivated Comments 07/28/2017 3:59 AM 07/29/2017 3:29 PM * Full Code Date Activated Date Inactivated Comments 07/27/2017 8:49 PM 07/28/2017 3:59 AM Care Teams Saw Operator Relationship Specialty [place] [address] [facility] [address] [place] [address] PCP - General Internal Medicine 08/28/13 [place] [address] [facility] [address] [place] [address] Pulmonary Disease 12/12/13 [place] [address] [facility] [address] [place] [address] Otolaryngology 12/12/13 [place] [address] [facility] [address] [place] [address] Orthopedic Surgery 08/22/17
--- OUTSIDE RECORDS SUMMARY | 2025-07-12 22:13 | XMS_ITS | Patient Health Record ---
Author Organization [facility] Address [address] [facility] [address] [place] [address] Care Team Providers Care Carpentry Instructor Name Role Phone Abelino Andrew Unavailable [phone] Reason For Referral No Information Plan Of Treatment No Information Insurance Providers Payer Name Payer Address Payer Phone Subscriber Number Group Number Insured Name Patient Relationship to Insured Coverage Start Date Coverage End Date [facility] [address] [place] [address] [id number] Keke Pro Self - patient is the insured
[2025-07-12 22:19] LABS: Thyroid Stimulating Hormone Reflex 0.045 uIU/mL (0.465-4.68)
[2025-07-12 22:38] LABS: Magnesium 1.8 mg/dL (1.6-2.3)
[2025-07-12 22:45] LABS: NT Pro B Type Natriuretic Pept 258 pg/mL (19.9-100)
--- NOTE | 2025-07-12 22:58 | ECG_ITS ---
Test Date: 2025-07-12 23:10:57 Measurements Intervals [place] Rate: 72 P: 55 MA: 186 QRS: 49 QRSD: 122 T: 53 QT: 446 QTc: 488 Interpretive Statements SINUS RHYTHM INCOMPLETE RIGHT BUNDLE BRANCH BLOCK BASELINE ARTIFACT- II, III, AVR, AVL ,AVF, V3-V6 BORDERLINE ECG Compared to ECG 07/12/2025 20:36:47 NO SIGNIFICANT CHANGE Electronically Signed On 07-13-2025 09:23:18 LEARNING MANAGER by Jorge Tello D.O.
[2025-07-12 23:04] LABS: Free T4 Free Thyroxine Reflex 1.05 ng/dL (0.78-2.19)
--- NOTE | 2025-07-12 23:21 | PC.NURSE ---
Report to Cat RN
--- NOTE | 2025-07-12 23:27 | PC.NURSE ---
Report received from FLORIDA Graves. Assumed care of patient at this time.
[2025-07-12 23:42] VITALS: BP 132/62; PULSE 73; RESP 18; O2SAT 97
[2025-07-12 23:58] LABS: Total Triiodothyronine (T3) 0.95 NG/ML (0.82-1.58)
[2025-07-13] VITALS (13 sets, daily range): BP systolic 120–139; BP diastolic 53–63; PULSE 65–90; RESP 14–18; TEMP 36.4–36.8; O2SAT 96–98; BMI 30.7
[2025-07-13 00:15] LABS: Troponin I < 0.012 ng/mL (0.000-0.034)
--- NOTE | 2025-07-13 01:22 | WPCEDHO ---
ED Hand Off Checklist All vitals saved:Yes IV Site documented:Yes All med administrations documented:Yes Triage Note Triage Note pt ambulatory to ED with c/o 07/12/25 20:30 chest pain. pt stated the chest pain started last night. pt also reports jaw pain and back pain with SOB. pt was at a hospital in [facility] and left before being seen. pt denies any cardiac hx. 2030--Patient alert and oriented, still reporting chest discomfort and slight nausea Allergies No Known Allergies Allergy (Verified 07/12/25 21:17) Administered/Completed Medications Discontinued Medications Aspirin (Aspirin 81 Mg Chewable Tablet) 324 mg PO ONCE STA Stop: 07/12/25 20:21 Last Admin: 07/12/25 20:55 Dose: 324 mg Documented By: ALMA Miscellaneous Information (Please Add Drug Allergy Info To Patient Profile.) 1 each XX CLARIFY NEYDA Stop: 08/11/25 00:00 Last Admin: 07/12/25 21:18 Dose: Not Given Documented By: ALMA Non-Admin Reason: Order Discontinued Ondansetron HCl (Ondansetron Inj 4 Mg/2 Ml Vial) 4 mg IV PUSH ONCE STA Stop: 07/12/25 21:28 Last Admin: 07/12/25 21:54 Dose: 4 mg Documented By: ALMA Notes 07/12/25 23:27 Nurse Note by Shreya Olvera Report received from FLOR[place] Graves. Assumed care of patient at this time. Initialized on 07/12/25 23:27 - END OF NOTE 07/12/25 23:21 Nurse Note by Ely Tavares Report to Cat RN Initialized on 07/12/25 23:21 - END OF NOTE Interventions/Assessments Cardiac Monitoring Start: 07/12/25 20:20 Freq: Status: Active Protocol: Document 07/12/25 20:30 TLB (Rec: 07/12/25 20:54 TLB [id number]) Wellness Specialist Assessment Wellness Specialist Yes Applied Pulse Rate (60-100) 76 EKG Rythm Sinus Rhythm IV / Saline Lock, Insert Start: 07/12/25 20:20 Freq: STAT Status: Active Protocol: Document 07/12/25 20:53 TLB (Rec: 07/12/25 20:54 TLB [id number]) IV Assessment Peripheral Access Left Antecubital IV Catheter Access Initiated IV Insertion Date 07/12/25 IV Insertion Time 20:45 Catheter Gauge 20 IV Insertion 2 Attempts IV Site Assessment WNL IV Care and WNL,Access Locked Maintenance PA: Cardiovascular Assessment Start: 07/12/25 20:20 Freq: Status: Active Protocol: Document 07/12/25 20:30 TLB (Rec: 07/12/25 22:08 TLB [id number]) Cardiovascular Assessment Cardiovascular Chest Pain,Nausea Symptoms Skin Description Normal Color Jugular Vein None Distention PA: Respiratory Assessment Start: 07/12/25 20:20 Freq: Status: Active Protocol: Document 07/12/25 20:30 TLB (Rec: 07/12/25 22:08 TLB [id number]) Respiratory Assessment Symptoms None Effort Normal Pattern Regular Depth Normal Chest Expansion Symmetrical Adult Capillary Normal/Less than 2 Seconds Refill Bilateral Throughout Lung Sounds Clear Cough Description None Last Vital Signs Temperature 97.9 F 07/13/25 01:21 Pulse Rate 77 07/13/25 01:21 Respiratory Rate 18 07/13/25 01:21 Pulse Oximetry 98 07/13/25 01:21 Blood Pressure 129/55 L 07/13/25 01:21 Blood Pressure Mean 79 07/13/25 01:21 Blood Pressure Position Sitting 07/13/25 01:21 Oxygen Delivery Room Air 07/12/25 20:20 Weight 79.4 kg 07/12/25 20:30 Last Result - Abnormals Only [place] % (Auto) 10.3 % (2.6-8.5) H 07/12/25 20:52 Creatinine 1.07 mg/dL (0.7-1.0) H 07/12/25 20:52 Estimated GFR 50 (59-) L 07/12/25 20:52 NT-Pro-B Natriuret Pep 258 pg/mL (19.9-100) H 07/12/25 20:51 Total Protein 8.7 g/dL (6.3-8.2) H 07/12/25 20:52 TSH (Reflex) 0.045 uIU/mL (0.465-4.68) L 07/12/25 20:52 Most Recent Suicide Severity Rating Suicide Severity Rating NO RISK INDICATED 07/12/25 20:30
[2025-07-13 02:59] LABS: Troponin I < 0.012 ng/mL (0.000-0.034)
--- NOTE | 2025-07-13 03:28 | PM.IMHP2 ---
H&P: HPI History of Present Illness Date/Time: 07/13/25 03:28 Chief Complaint: Palpitations and chest tightness Narrative: 70-year-old female presents to [facility] ER on 07/12/2025 complaining of chest tightness, shortness of breath, irregular heartbeat. This has happened over the past 2 weeks. Last about 20 minutes and resolved on his own. No aggravating or relieving factors. Finally patient called the EMS and she was taken to [place]. She left because she was not seen in time and presented [facility]. Patient has a history of chronic back pain, depression, fibromyalgia, hypothyroidism. EKG showing sinus rhythm. Potassium 3.5, magnesium 1.8. Telemetry demonstrating sinus rhythm. Serum creatinine 1.07 without baseline to compare. D-dimer 0.36. Chest x-ray showing no acute disease, final radiology interpretation is pending. TSH 0.045. Troponin negative x2 Patient received Zofran, aspirin 324 mg p.o. x1. Review of Systems Review of Systems: All systems reviewed & are unremarkable except as noted in HPI and below (Subjective) [facility] Family History Family History (Updated 07/13/25 @ 02:36 by Christian Johnson RN) Other Diabetes mellitus Other Diabetes mellitus Father Heart disease Mother CHF (congestive heart failure) Hyperlipidemia Breast cancer Social History Social History Smoking status: Never smoker Alcohol intake: current Drinks per week: 1 Substance use: never Substance use type: does not use Lack of Transportation: No Lack of Food: Never True Current Housing: I Have Housing Concerned About Future Housing: No Difficulty Paying Gas/Electric Bills: No Difficulty Paying for Meds: No Currently Unemployed: No Education: Bachelor's Degree Difficulty w/ Childcare or Family Care: No Spiritual care concerns: No Meds Home Medications and Allergies Home Medications ?Medication ?Instructions ?Recorded ?Confirmed ?Type biotin 10,000 mcg capsule 10,000 mcg PO DAILY 07/13/25 07/13/25 History thdunrbxhc-hpkejcctuexzy-dbcodyys 2 tablet PO Q4H PRN headache 07/13/25 07/13/25 History 50 mg-325 mg-40 mg tablet calcium 500 mg tablet 500 mg PO DAILY 07/13/25 07/13/25 History cholecalciferol (vitamin D3) 25 25 mcg PO DAILY 07/13/25 07/13/25 History mcg (1,000 unit) capsule cyanocobalamin (vitamin B-12) 1,000 mcg PO DAILY 07/13/25 07/13/25 History 1,000 mcg capsule duloxetine 60 mg capsule,delayed 60 mg PO BID 07/13/25 07/13/25 History release escitalopram oxalate 20 mg tablet 20 mg PO DAILY 07/13/25 07/13/25 History hydrocodone 10 mg-acetaminophen 1 tablet PO Q4-6H PRN pain 07/13/25 07/13/25 History 325 mg tablet levothyroxine 200 mcg tablet 200 mcg PO DAILY 07/13/25 07/13/25 History melatonin 3 mg capsule 3 mg PO HS PRN sleep 07/13/25 07/13/25 History mometasone 0.1 % topical ointment 1 applic topical DAILY PRN ECZEMA 07/13/25 07/13/25 History raloxifene 60 mg tablet 60 mg PO DAILY 07/13/25 07/13/25 History solifenacin 10 mg tablet 10 mg PO DAILY 07/13/25 07/13/25 History sumatriptan succinate 25 mg tablet 25 mg PO Q2H PRN migraine headache 07/13/25 07/13/25 History trazodone 100 mg tablet 100 mg PO HS 07/13/25 07/13/25 History Allergies Allergy/AdvReac Type Severity Reaction Status Date / Time No Known Allergies Allergy Verified 07/13/25 02:32 Vital Signs Vital Signs - 24 hr 07/12/25 20:20 07/12/25 20:30 07/12/25 21:59 Temperature 97.7 F Pulse Rate 77 76 75 Respiratory Rate 18 16 Blood Pressure 172/76 H 141/74 H Pulse Oximetry 100 99 Oxygen Delivery Room Air 07/12/25 23:42 07/13/25 01:21 07/13/25 01:24 Temperature 97.9 F 97.9 F Pulse Rate 73 77 79 Respiratory Rate 18 18 18 Blood Pressure 132/62 129/55 L 129/55 L Pulse Oximetry 97 98 97 Oxygen Delivery 07/13/25 02:20 Temperature 98.0 F Pulse Rate 73 Respiratory Rate 16 Blood Pressure 139/60 Pulse Oximetry 96 Oxygen Delivery Exam Const: General: comfortable and no acute distress HENMT: Mouth: Yes moist mucous membranes Eyes: Pupils: Equal, round and reactive pupils present Neck: Neck: supple Resp: Effort & Inspection: normal respiratory effort Auscultation: clear to auscultation bilaterally Cardio: Rate: regular rate Rhythm: regular rhythm GI: Inspection: non-distended GI Palp: Yes Soft to palpation Neuro: Motor exam (neuro): 5/5 motor strength present throughout Extrem: General: no edema Results Labs Labs: Short CBC 07/12/25 Range/Units 20:52 WBC 5.9 (4.5-10.0) K/mm3 Hgb 14.5 (12.0-15.0) g/dL Hct 42.4 (37.0-47.0) % Plt Count 282 (150-375) k/mm3 BMP 07/12/25 20:52 Sodium 139 Potassium 3.5 Chloride 104 Carbon Dioxide 29 BUN 16 Creatinine 1.07 H Glucose 86 Calcium 9.4 Cardiac Enzymes 07/12/25 07/12/25 07/13/25 Range/Units 20:52 23:24 02:26 Troponin I < 0.012 < 0.012 < 0.012 (0.000-0.034) ng/mL Liver Function 07/12/25 Range/Units 20:52 Total Bilirubin 0.3 (0.2-1.3) mg/dL AST 28 (14-36) U/L ALT 15 (6-35) U/L Alkaline Phosphatase 76 (38-126) U/L Albumin 4.4 (3.5-5.1) g/dL Assessment and Plan Assessment and plan (1) Chest pain: Qualifiers: Chest pain type: unspecified Qualified Code(s): R07.9 - Chest pain, unspecified Code(s): R07.9 - Chest pain, unspecified Status: Acute (2) Palpitations: Code(s): R00.2 - Palpitations Status: Acute Plan Hold/decrease levothyroxine dose. Cardiology consult. Echocardiogram. Telemetry monitoring. Patient wishes to be DNR. SCDs. Time Spent with Patient Time with patient: less than 45 minutes Hospitalist MIPS Advance Care Plan I have confirmed that the patient's Advanced Care Plan is present, code status is documented, or surrogate decision maker is listed in patient medical record.: Yes Medication Reconciliation I have utilized all available resources to obtain, update and review the patients current medications (includes all prescriptions, OTC, herbals, cannabis, and nutritional supplements).: Yes
[2025-07-13 06:26] LABS: Hematocrit 35.7 % (37.0-47.0); Hemoglobin 12.0 g/dL (12.0-15.0); Mean Corpuscular HGB Conc 33.6 g/dl (32-36); Mean Corpuscular Hemoglobin 31.9 pg (26-34); Mean Corpuscular Volume 94.9 fl (80-100); Platelet Count Result 233 k/mm3 (150-375); Red Blood Count 3.76 M/mm3 (4.2-5.4); White Blood Count 6.1 K/mm3 (4.5-10.0)
[2025-07-13 06:52] LABS: Anion Gap 6 mmol/L (4-12); Blood Urea Nitrogen 19 mg/dL (7-17); Calcium 8.5 mg/dL (8.4-10.2); Carbon Dioxide 24 mmol/L (22-30); Chloride 108 mmol/L (98-107); Estimated CRCL calculation 48 ml/min; Estimated Glomerular Filt Rate 60; Glucose 108 mg/dL (65-110); Magnesium 1.9 mg/dL (1.6-2.3); Potassium 3.8 mmol/L (3.4-5.0); Sodium 138 mmol/L (137-145)
[2025-07-13] MEDS: HYDROcodone/acetaminophen (*CRX) 10-325 MG TABLET 1 TAB PO (07:20)
--- NOTE | 2025-07-13 12:02 | P.PN_ITS ---
Progress Note: A&P Assessment and Plan (1) Chest pain: Qualifiers: Chest pain type: unspecified Qualified Code(s): R07.9 - Chest pain, unspecified Code(s): R07.9 - Chest pain, unspecified Status: Acute Assessment and Plan: Progressive over several days * EKG on presentation unremarkable * Troponin negative x2 * Continue with telemetry monitoring * Await Cardiology consultation, appreciate recommendation * Echocardiogram ordered and is pending completion (2) Palpitations: Code(s): R00.2 - Palpitations Status: Acute Assessment and Plan: Improving * Plan as above (3) Hypothyroidism: Code(s): E03.9 - Hypothyroidism, unspecified Status: Acute Assessment and Plan: TSH is low at 0.045 * Will resume levothyroxine with slight dose reduction - begin 175 mcg dose * Will need close outpatient monitoring of TSH levels given adjustment Subjective Date/time seen: 07/13/25 12:02 Interval history: Keke continues to endorse chest pain that radiates to the mid-upper back. States palpitations have improved but still present. Denies arm pain or jaw pain. Denies abdominal pain,vomiting, fevers, chills but does report occasional nausea. Endorses SOB and conversational dyspnea. Denies HARRIS or orthopnea. Reports nonproductive cough. She is tolerating her diet. States she is voiding without difficulty and reports normal bowel movements. Denies swelling of her extremities, numbness, or tingling. Review of Systems Review of Systems: All systems reviewed & are unremarkable except as noted in HPI and below Exam Narrative: General: Awake, alert, comfortable, no acute distress HEENT: Normocephalic, atraumatic, sclerae anicteric Respiratory: Normal respiratory effort, no accessory muscle use Abdomen: Nondistended, soft, nontender Skin: Normal coloration, warm and dry Extremities: no erythema or edema Neurologic: No focal neuro deficits noted Psychiatric: Appropriate mood and affect, judgment and insight intact Objective Data Vital Signs Vital Signs: Vital Signs - 24 hr 07/12/25 20:20 07/12/25 20:30 07/12/25 21:59 Temperature 97.7 F Pulse Rate 77 76 75 Respiratory Rate 18 16 Blood Pressure 172/76 H 141/74 H Pulse Oximetry 100 99 Oxygen Delivery Room Air 07/12/25 23:42 07/13/25 01:21 07/13/25 01:24 Temperature 97.9 F 97.9 F Pulse Rate 73 77 79 Respiratory Rate 18 18 18 Blood Pressure 132/62 129/55 L 129/55 L Pulse Oximetry 97 98 97 Oxygen Delivery 07/13/25 02:20 07/13/25 04:00 07/13/25 04:44 Temperature 98.0 F Pulse Rate 73 67 Respiratory Rate 16 Blood Pressure 139/60 Pulse Oximetry 96 Oxygen Delivery Room Air 07/13/25 06:00 07/13/25 07:50 Temperature 97.5 F L Pulse Rate 73 72 Respiratory Rate 16 Blood Pressure 134/58 L Pulse Oximetry 97 97 Oxygen Delivery Room Air Intake/Output Intake/Output: Intake & Output 07/10/25 07/11/25 07/12/25 07/13/25 23:59 23:59 23:59 23:59 Intake Total 240 Balance 240 Meds/Results Medications: Active Medications Generic Name Dose Route Start Last Admin Trade Name Freq PRN Reason Stop Dose Admin Hydrocodone Bitart/Acetaminophen 1 tab 07/13/25 03:30 07/13/25 07:20 Hydrocodone/Acetaminophen (*Crx) 10-325 Mg Tablet PO 1 tab Q4-6H PRN Administration Pain Melatonin 3 mg 07/13/25 03:30 Melatonin 3 Mg Tablet PO HS PRN Sleep Perflutren Lipid Microsphere 0 ml 07/13/25 03:31 Perflutren Lipid Microspheres 1.5 Ml Vial Diluted To 10 Ml Total Volume IV PUSH 07/16/25 03:31 ONCE PRN adequate visualization Protocol Trazodone HCl 100 mg 07/13/25 21:00 Trazodone Hcl 50 Mg Tablet PO [facility] Radiology Results: ITS Impressions Chest X-Ray 07/13/25 10:13 IMPRESSION: 1. No acute cardiopulmonary findings. Labs Labs: Laboratory Results - last 24 hr 07/12/25 07/12/25 07/12/25 20:51 20:52 23:24 WBC 5.9 RBC 4.56 Hgb 14.5 Hct 42.4 MCV 93.0 MCH 31.8 MCHC 34.2 RDW 12.3 Plt Count 282 MPV 9.0 Immature Gran % (Auto) 0.2 Neut % (Auto) 49.0 Lymph % (Auto) 37.1 [place] % (Auto) 10.3 H Eos % (Auto) 2.9 Baso % (Auto) 0.5 Lymph # (Auto) 2.19 [place] # (Auto) 0.6 Eos # (Auto) 0.2 Baso # (Auto) 0.0 Abs Immat Gran (auto) 0.01 Absolute Neuts (auto) 2.9 Absolute Nucleated RBC 0.000 Nucleated RBC % 0.0 PT 13.7 INR 1.0 APTT 25.9 D-Dimer 0.36 Sodium 139 Potassium 3.5 Chloride 104 Carbon Dioxide 29 Anion Gap 6 BUN 16 Creatinine 1.07 H Estim Creat Clear Calc 42 Estimated GFR 50 L Glucose 86 Calcium 9.4 Magnesium 1.8 Total Bilirubin 0.3 AST 28 ALT 15 Alkaline Phosphatase 76 Troponin I < 0.012 < 0.012 NT-Pro-B Natriuret Pep 258 H Total Protein 8.7 H Albumin 4.4 Lipase 53 TSH (Reflex) 0.045 L Free T4 1.05 Total T3 0.95 07/13/25 07/13/25 02:26 05:06 WBC 6.1 RBC 3.76 L Hgb 12.0 Hct 35.7 L MCV 94.9 MCH 31.9 MCHC 33.6 RDW 12.3 Plt Count 233 MPV 9.3 Immature Gran % (Auto) Neut % (Auto) Lymph % (Auto) [place] % (Auto) Eos % (Auto) Baso % (Auto) Lymph # (Auto) [place] # (Auto) Eos # (Auto) Baso # (Auto) Abs Immat Gran (auto) Absolute Neuts (auto) Absolute Nucleated RBC Nucleated RBC % PT INR APTT D-Dimer Sodium 138 Potassium 3.8 Chloride 108 H Carbon Dioxide 24 Anion Gap 6 BUN 19 H Creatinine 0.92 Estim Creat Clear Calc 48 Estimated GFR 60 Glucose 108 Calcium 8.5 Magnesium 1.9 Total Bilirubin AST ALT Alkaline Phosphatase Troponin I < 0.012 NT-Pro-B Natriuret Pep Total Protein Albumin Lipase TSH (Reflex) Free T4 Total T3 Quality VTE Prophylaxis VTE prophylaxis: mechanical ordered
[2025-07-13] MEDS: ESCITALOPRAM OXALATE 10 MG TABLET 20 MG PO (14:09)
[2025-07-13] MEDS: CALCIUM CARBONATE (OSCAL) 500 MG TABLET PO (14:09)
[2025-07-13] MEDS: CHOLECALCIFEROL (VITAMIN D3) 25 MCG (1,000 UNITS) TABLET PO (14:10)
[2025-07-13] MEDS: CYANOCOBALAMIN 1,000 MCG TABLET 1000 MCG PO (14:10)
[2025-07-13] MEDS: RALOXIFENE HCL (*CHEMO) 60 MG TABLET PO (14:10)
[2025-07-13] MEDS: SOLIFENACIN 5 MG TABLET 10 MG PO (14:11)
[2025-07-13] MEDS: ACETAMINOPHEN/BUTALBITAL/CAFFEINE 325-50-40 MG TABLET (FIORICET) 2 TAB PO (14:17)
--- NOTE | 2025-07-13 14:22 | PM.CNCAR ---
Assessment and Plan Assessment and plan (1) Chest pain: Qualifiers: Chest pain type: unspecified Qualified Code(s): R07.9 - Chest pain, unspecified Code(s): R07.9 - Chest pain, unspecified Status: Acute Plan Atypical chest pain with negative cardiac enzymes and EKG changes Palpitation possible related to be ectopic beats versus proximal atrial fibrillation Hypertensive urgency Plan Metoprolol 25 mg b.i.d. Event monitor on discharge Transthoracic echocardiogram Nuclear stress Test History of Present Illness History of Present Illness Consult date/time: 07/13/25 14:22 Reason For Visit: Chest pain Narrative: 70-year-old female patient presented to the hospital was chest pain and palpitation. Patient has been complaining of palpitations admitted for last several weeks. She feels sometimes as intermittent skipped heartbeats and bounding pulse. It was associated was upper chest discomfort radiating to the neck. Pain is moderate in severity without a precipitating or relieving factors. He she visited the ER on Monday noted to have elevated blood pressure. Yesterday she had recurrent symptoms and presented to the ED again. Review of Systems Review of Systems: All systems reviewed & are unremarkable except as noted in HPI and below PMFSH Family History Family History (Updated 07/13/25 @ 02:36 by Christian Johnson RN) Other Diabetes mellitus Other Diabetes mellitus Father Heart disease Mother CHF (congestive heart failure) Hyperlipidemia Breast cancer Social History Social History Smoking status: Never smoker Alcohol intake: current Drinks per week: 1 Substance use: never Substance use type: does not use Lack of Transportation: No Lack of Food: Never True Current Housing: I Have Housing Concerned About Future Housing: No Difficulty Paying Gas/Electric Bills: No Difficulty Paying for Meds: No Currently Unemployed: No Education: Bachelor's Degree Difficulty w/ Childcare or Family Care: No Spiritual care concerns: No Meds Home Medications and Allergies Home Medications ?Medication ?Instructions ?Recorded ?Confirmed ?Type biotin 10,000 mcg capsule 10,000 mcg PO DAILY 07/13/25 07/13/25 History eewrvdkxod-uhxlvxujcnpav-mqtjuche 2 tablet PO Q4H PRN headache 07/13/25 07/13/25 History 50 mg-325 mg-40 mg tablet calcium 500 mg tablet 500 mg PO DAILY 07/13/25 07/13/25 History cholecalciferol (vitamin D3) 25 25 mcg PO DAILY 07/13/25 07/13/25 History mcg (1,000 unit) capsule cyanocobalamin (vitamin B-12) 1,000 mcg PO DAILY 07/13/25 07/13/25 History 1,000 mcg capsule duloxetine 60 mg capsule,delayed 60 mg PO BID 07/13/25 07/13/25 History release escitalopram oxalate 20 mg tablet 20 mg PO DAILY 07/13/25 07/13/25 History hydrocodone 10 mg-acetaminophen 1 tablet PO Q4-6H PRN pain 07/13/25 07/13/25 History 325 mg tablet levothyroxine 200 mcg tablet 200 mcg PO DAILY 07/13/25 07/13/25 History melatonin 3 mg capsule 3 mg PO HS PRN sleep 07/13/25 07/13/25 History mometasone 0.1 % topical ointment 1 applic topical DAILY PRN ECZEMA 07/13/25 07/13/25 History raloxifene 60 mg tablet 60 mg PO DAILY 07/13/25 07/13/25 History solifenacin 10 mg tablet 10 mg PO DAILY 07/13/25 07/13/25 History sumatriptan succinate 25 mg tablet 25 mg PO Q2H PRN migraine headache 07/13/25 07/13/25 History trazodone 100 mg tablet 100 mg PO HS 07/13/25 07/13/25 History Allergies Allergy/AdvReac Type Severity Reaction Status Date / Time No Known Allergies Allergy Verified 07/13/25 02:32 Vital Signs Vital Signs - 24 hr 07/12/25 20:20 07/12/25 20:30 07/12/25 21:59 Temperature 36.5 C Pulse Rate 77 76 75 Respiratory Rate 18 16 Blood Pressure 172/76 H 141/74 H Pulse Oximetry 100 99 Oxygen Delivery Room Air 07/12/25 23:42 07/13/25 01:21 07/13/25 01:24 Temperature 36.6 C 36.6 C Pulse Rate 73 77 79 Respiratory Rate 18 18 18 Blood Pressure 132/62 129/55 L 129/55 L Pulse Oximetry 97 98 97 Oxygen Delivery 07/13/25 02:20 07/13/25 04:00 07/13/25 04:44 Temperature 36.7 C Pulse Rate 73 67 Respiratory Rate 16 Blood Pressure 139/60 Pulse Oximetry 96 Oxygen Delivery Room Air 07/13/25 06:00 07/13/25 07:50 07/13/25 08:00 Temperature 36.4 C L Pulse Rate 73 72 68 Respiratory Rate 16 Blood Pressure 134/58 L Pulse Oximetry 97 97 Oxygen Delivery Room Air 07/13/25 12:00 07/13/25 13:58 Temperature 36.8 C Pulse Rate 75 77 Respiratory Rate 18 Blood Pressure 139/63 Pulse Oximetry 98 Oxygen Delivery Exam Const: General: comfortable and no acute distress Other: Able to lie flat HENMT: Face/Nose/Sinus: Normal nares present and no epistaxis Mouth: Yes moist mucous membranes Eyes: Sclera: sclerae normal Pupils: Equal, round and reactive pupils present Neck: Neck: supple and no JVD Carotids: no bruits Resp: Auscultation: clear to auscultation bilaterally and lung sounds not diminished Other: No chest wall tenderness Cardio: Rate: regular rate Rhythm: regular rhythm Heart sounds: no gallops, no murmurs and no rubs GI: GI Palp: Yes Soft to palpation and No Tenderness to palpation present (GI) Auscultation: normal bowel sounds Skin: General skin exam: normal color, rashes and/or lesions noted and no erythema Other: Warm Neuro: Cranial nerves: Yes Equal, round and reactive pupils present Speech: normal speech Other: No obvious focal deficit or facial asymmetry Extrem: General: no edema Other: Normal capillary refills Intact distal pulses. Results Labs and Meds 07/13/25 05:06 07/13/25 05:06 Lab results: Cardiac Enzymes 07/12/25 07/12/25 07/13/25 Range/Units 20:52 23:24 02:26 AST 28 (14-36) U/L Troponin I < 0.012 < 0.012 < 0.012 (0.000-0.034) ng/mL Coagulation 07/12/25 Range/Units 20:52 PT 13.7 (11.1-14.7) Seconds APTT 25.9 (22.3-36.8) Seconds CBC 07/12/25 07/13/25 Range/Units 20:52 05:06 WBC 5.9 6.1 (4.5-10.0) K/mm3 RBC 4.56 3.76 L (4.2-5.4) M/mm3 Hgb 14.5 12.0 (12.0-15.0) g/dL Hct 42.4 35.7 L (37.0-47.0) % Plt Count 282 233 (150-375) k/mm3 Lymph # (Auto) 2.19 (0.9-3.2) K/mm3 [place] # (Auto) 0.6 (0.1-0.6) K/mm3 Eos # (Auto) 0.2 (0-0.3) K/mm3 Baso # (Auto) 0.0 (0.0-0.1) K/mm3 Comprehensive Metabolic Panel 07/12/25 07/13/25 Range/Units 20:52 05:06 Sodium 139 138 (137-145) mmol/L Potassium 3.5 3.8 (3.4-5.0) mmol/L Chloride 104 108 H (98-107) mmol/L Carbon Dioxide 29 24 (22-30) mmol/L BUN 16 19 H (7-17) mg/dL Creatinine 1.07 H 0.92 (0.7-1.0) mg/dL Glucose 86 108 (65-110) mg/dL Calcium 9.4 8.5 (8.4-10.2) mg/dL AST 28 (14-36) U/L ALT 15 (6-35) U/L Alkaline Phosphatase 76 (38-126) U/L Total Protein 8.7 H (6.3-8.2) g/dL Albumin 4.4 (3.5-5.1) g/dL Intake and Output 07/12/25 07/13/25 07/13/25 23:59 07:59 15:59 Intake Total 480 Balance 480 Intake: Oral 480 Other: # Unmeasured Voids 1 Patient Weight 07/13/25 23:59 Weight 78.6 kg
[2025-07-13] MEDS: DULoxetine HCL 60 MG CAPSULE.DR PO (17:15)
[2025-07-13] MEDS: METOPROLOL TARTRATE 25 MG TABLET PO (20:12)
[2025-07-14] VITALS (7 sets, daily range): BP systolic 119–133; BP diastolic 58–74; PULSE 59–79; RESP 14–16; TEMP 36.5; O2SAT 96–97
--- NOTE | 2025-07-14 | EST_ITS ---
Patient Info Name: Keke Pro Age: 70 years : 1955 Gender: Female Ht: 63 in Wt: 173 lbs BSA: 1.90 m2 HR: 63 bpm BP: 114 / 73 mmHg Exam Date: 07/14/2025 6:16 AM Patient Status: I Admit Date: 07/13/2025 Exam Type: CA stress sindhu w NM A regadenoson stress test was performed. Staff Referring Physician: Tyler Castaneda Attending Provider: Ann Burrell Nurse: Melody Balderas Exercise Technologist: Nataliia Eller Summary 1. No abnormal ST-T wave changes with lexiscan. 2. Please correlate with nuclear medicine images, reported separately. Protocol: Lexiscan Stress ECG Details Stage: REST Duration (min): 1 min : 31 sec HR (bpm): 65 SBP (mmHg): 114 DBP (mmHg): 73 Stage: REST Duration (min): 5 min : 39 sec HR (bpm): 64 SBP (mmHg): 114 DBP (mmHg): 73 Stage: STAGE 1 Duration (min): 1 min : 0 sec HR (bpm): 88 SBP (mmHg): 125 DBP (mmHg): 65 Stage: RECOVERY Duration (min): 1 min : 0 sec HR (bpm): 93 SBP (mmHg): 125 DBP (mmHg): 65 Stage: RECOVERY Duration (min): 2 min : 0 sec HR (bpm): 91 SBP (mmHg): 125 DBP (mmHg): 65 Stage: RECOVERY Duration (min): 3 min : 0 sec HR (bpm): 89 SBP (mmHg): 149 DBP (mmHg): 73 Stage: RECOVERY Duration (min): 3 min : 17 sec HR (bpm): 86 SBP (mmHg): 149 DBP (mmHg): 73 Rest HR: 64 bpm Peak HR: 94 bpm Rest Sys BP: 114 mmHg Peak Sys BP: 149 mmHg Max Pred HR: 148 bpm % Max Pred HR: 64 % Target HR: 126 bpm Max RPP: 14,006 bpm*mmHg Total Time: 1 min : 0 sec Rest Raman BP: 73 mmHg Peak Raman BP: 73 mmHg Total Dose: 0.4 mg Resting ECG Normal sinus rhythm. Stress ECG No abnormal ST/T wave changes with Lexiscan. Arrhythmias None. Report Signatures
--- NOTE | 2025-07-14 | ECHO_ITS ---
Patient Info Name: Keke Pro Age: 70 years : 1955 Gender: Female Ht: 63 in Wt: 173 lbs BSA: 1.90 m2 HR: 59 bpm BP: 119 / 58 mmHg Technical Quality: Good Exam Date: 07/14/2025 1:13 PM Patient Status: I Admit Date: 07/13/2025 Exam Type: CA echo doppler color flow Complete two-dimensional, color flow and Doppler transthoracic echocardiogram is performed. Staff Referring Physician: Tyler Castaneda Credit Risk Review Officer: Sania Cordova Attending Provider: Ann Burrell Summary 1. Complete two-dimensional, color flow and Doppler transthoracic echocardiogram is performed. 2. Technically difficult study with limited views. 3. Normal biventricular size and systolic function. 4. The cardiac valves were not well visualized. Left Ventricle The left ventricle is normal in size and systolic function. The left ventricular ejection fraction is visually estimated to be 60-65%. Right Ventricle The right ventricle is normal in size and systolic function. Left Atria The left atrium is normal size. Right Atria The right atrium is normal size. Aortic Valve The aortic valve is not well visualized. Pulmonic Valve The pulmonic valve is not well visualized. Mitral Valve The mitral valve is normal. Tricuspid Valve The tricuspid valve is grossly normal. Pericardium/Pleural There is pericardial effusion. Inferior Vena Cava Normal inferior vena cava with >50% collapse upon inspiration consistent with normal right atrial pressure, 3 mmHg. Aorta The aortic root at the level of the sinus of Valsalva measures 3.1 cm in diameter. Left Ventricular Outflow Tract Name Value Normal LVOT 2D LVOT Diameter 2.0 cm LVOT Doppler LVOT Peak Velocity 92 cm/s LVOT Peak Gradient 3 mmHg LVOT Mean Gradient 1 mmHg LVOT VTI 18 cm LVOT VTI/AV VTI Ratio 0.7 LVOT Stroke Volume 55 ml LVOT CO 4.1 l/min LVOT CI 2.2 l/min/m2 Pulmonic Valve Name Value Normal PV Doppler PV Peak Velocity 65 cm/s PV Peak Gradient 2 mmHg Mitral Valve Name Value Normal MV Doppler MV Peak Gradient 4 mmHg MV Mean Gradient 1 mmHg MV Area (Cont Eq VTI) 2.4 cm2 MV Diastolic Function MV E Peak Velocity 68 cm/s MV A Peak Velocity 87 cm/s MV E/A 0.8 MV Decel Time (PW) 266 ms MV Annular TDI MV E/e' (Septal) 8.7 MV E/e' (Lateral) 8.5 MV E/e' (Average) 8.6 Tricuspid Valve Name Value Normal TV Regurgitation Doppler TR Peak Velocity 213 cm/s TR Peak Gradient 18 mmHg Estimated PAP/RSVP RA Pressure 3 mmHg <=5 PA Systolic Pressure 21 mmHg <36 RV Systolic Pressure 21 mmHg <36 TV Annular TDI TV Lateral Vero s' Velocity 10.4 cm/s >=9.5 Aortic Valve Name Value Normal AV Doppler AV Peak Velocity 106 cm/s AV Peak Gradient 4 mmHg AV Mean Gradient 2 mmHg AV VTI 24 cm AV Area (Cont Eq VTI) 2.3 cm2 >=3.0 AV Area (Cont Eq [place]) 2.6 cm2 AV DI ([place]) 0.87 AV Regurgitation 2D LVOT Area 3.0 cm2 Ventricles Name Value Normal LV Dimensions 2D/MM IVS Diastolic Thickness (2D) 0.7 cm 0.6-1.0 LVID Diastole (2D) 3.8 cm 3.8-5.2 LVIW Diastolic Thickness (2D) 0.8 cm 0.6-0.9 LVID Systole (2D) 2.6 cm 2.2-3.5 LVOT Diameter 2.0 cm LV Mass (2D Cubed) 78.70 g 67.00-162.00 LV Mass Index (2D Cubed) 42 g/m2 43-95 Relative Wall Thickness (2D) 0.42 <=0.42 LV Fractional Shortening/Ejection Fraction 2D/MM LV Fractional Shortening (2D) 32 % 27-45 LV EF (2D [place]) 61 % LV Diastolic Volume (4C MOD) 49 ml LV EF (4C MOD) 58 % LV Diastolic Volume (2C MOD) 41 ml LV EF (2C MOD) 55 % LV Diastolic Volume (BP MOD) 45 ml 46-106 LV Diastolic Volume Index (BP MOD) 24 ml/m2 29-61 LV Systolic Volume (BP MOD) 21 ml 14-42 LV Systolic Volume Index (BP MOD) 11 ml/m2 8-24 LV EF (BP MOD) 53 % 54-74 LV Diastolic Length (4C) 7.0 cm LV Systolic Length (4C) 6.5 cm LV Stroke Volume (4C MOD) 29 ml Atria Name Value Normal LA Dimensions LA Volume (4C A-L) 25 ml LA Volume (BP A-L) 25 ml RA Dimensions RA Systolic Major [place] Length (4C) 3.6 cm 2.2-2.8 RA Area (4C) 9.5 cm2 <=18.0 Report Signatures
[2025-07-14] MEDS: LEVOTHYROXINE SODIUM 100 MCG, LEVOTHYROXINE SODIUM 75 MCG 175 MCG PO (05:48)
[2025-07-14 08:42] LABS: Alanine Aminotransferase 13 U/L (6-35); Albumin Level 3.6 g/dL (3.5-5.1); Alkaline Phosphatase 57 U/L (38-126); Anion Gap 4 mmol/L (4-12); Aspartate Amino Transferase 23 U/L (14-36); Bilirubin,Total 0.4 mg/dL (0.2-1.3); Blood Urea Nitrogen 15 mg/dL (7-17); Calcium 8.8 mg/dL (8.4-10.2); Carbon Dioxide 24 mmol/L (22-30); Chloride 110 mmol/L (98-107); Estimated CRCL calculation 50 ml/min; Estimated Glomerular Filt Rate > 60; Glucose 100 mg/dL (65-110); Potassium 4.1 mmol/L (3.4-5.0); Sodium 138 mmol/L (137-145); Total Protein 6.9 g/dL (6.3-8.2)
[2025-07-14 10:14] LABS: Hematocrit 40.2 % (37.0-47.0); Hemoglobin 13.3 g/dL (12.0-15.0); Immature Granulocyte Percent A 0.2 % (0-0.5); Lymphocytes Absolute Auto 1.52 K/mm3 (0.9-3.2); Mean Corpuscular HGB Conc 33.1 g/dl (32-36); Mean Corpuscular Hemoglobin 31.1 pg (26-34); Mean Corpuscular Volume 94.1 fl (80-100); Nucleated Red Blood Cells Absolute Auto 0.000 K/mm3 (0.0-0.012); Nucleated Red Blood Cells Perc 0.0 % (0.0-0.2); Platelet Count Result 238 k/mm3 (150-375); Red Blood Count 4.27 M/mm3 (4.2-5.4); White Blood Count 5.7 K/mm3 (4.5-10.0)
--- NOTE | 2025-07-14 13:00 | PM.PNCARD ---
Progress Note: A&P Assessment and Plan (1) Chest pain: Qualifiers: Chest pain type: unspecified Qualified Code(s): R07.9 - Chest pain, unspecified Code(s): R07.9 - Chest pain, unspecified Status: Acute Plan Atypical chest pain with negative cardiac enzymes and EKG changes Palpitation possible related to be ectopic beats versus proximal atrial fibrillation Hypertensive urgency Plan Metoprolol 25 mg b.i.d. Event monitor on discharge Nuclear stress Test Negative- no ischemia or infarct, EF normal echocardiogram ordered and pending, if unremarkable can be discharged from a cardiology standpoint Cardiology will sign off. Please call with any questions. Subjective Date/time seen: 07/14/25 13:00 Interval history: Keke continues to endorse chest pain that radiates to the mid-upper back. States palpitations have improved but still present. Denies arm pain or jaw pain. Denies abdominal pain,vomiting, fevers, chills but does report occasional nausea. Endorses SOB and conversational dyspnea. Denies HARRIS or orthopnea. Reports nonproductive cough. She is tolerating her diet. States she is voiding without difficulty and reports normal bowel movements. Denies swelling of her extremities, numbness, or tingling. Date of service 07/14/2025: No further episodes of chest pain. Does not have any complaints at the time of my evaluation. Review of Systems Review of Systems: All systems reviewed & are unremarkable except as noted in HPI and below Exam Const: General: comfortable and no acute distress Other: Able to lie flat HENMT: Face/Nose/Sinus: Normal nares present and no epistaxis Mouth: Yes moist mucous membranes Eyes: Sclera: sclerae normal Pupils: Equal, round and reactive pupils present Neck: Neck: supple and no JVD Carotids: no bruits Resp: Auscultation: clear to auscultation bilaterally and lung sounds not diminished Other: No chest wall tenderness Cardio: Rate: regular rate Rhythm: regular rhythm Heart sounds: no gallops, no murmurs and no rubs GI: Auscultation: normal bowel sounds Skin: General skin exam: normal color, rashes and/or lesions noted and no erythema Other: Warm Neuro: Cranial nerves: Yes Equal, round and reactive pupils present Speech: normal speech Other: No obvious focal deficit or facial asymmetry Extrem: General: no edema Other: Normal capillary refills Intact distal pulses. Objective Data Vital Signs Vital Signs: Vital Signs - 24 hr 07/13/25 13:58 07/13/25 16:00 07/13/25 20:00 Temperature 36.8 C Pulse Rate 77 90 Respiratory Rate 18 Blood Pressure 139/63 Pulse Oximetry 98 Oxygen Delivery Room Air 07/13/25 20:00 07/13/25 20:12 07/13/25 21:26 Temperature 36.6 C Pulse Rate 70 72 65 Respiratory Rate 14 Blood Pressure 120/53 L Pulse Oximetry 96 Oxygen Delivery 07/14/25 00:00 07/14/25 04:00 07/14/25 05:23 Temperature 36.5 C Pulse Rate 62 61 59 L Respiratory Rate 14 Blood Pressure 119/58 L Pulse Oximetry 97 Oxygen Delivery 07/14/25 08:00 07/14/25 08:30 Temperature Pulse Rate 64 Respiratory Rate Blood Pressure Pulse Oximetry Oxygen Delivery Room Air Intake/Output Intake/Output: Intake & Output 07/11/25 07/12/25 07/13/25 07/14/25 23:59 23:59 23:59 23:59 Intake Total 480 Balance 480 Meds/Results Medications: Active Medications Generic Name Dose Route Start Last Admin Trade Name Freq PRN Reason Stop Dose Admin Acetaminophen/Butalbital/Caffeine 2 tab 07/13/25 12:09 07/13/25 14:17 Acetaminophen/Butalbital/Caffeine 325-50-40 Mg Tablet (Fioricet) PO 2 tab Q4H PRN Administration Headache Hydrocodone Bitart/Acetaminophen 1 tab 07/13/25 03:30 07/13/25 07:20 Hydrocodone/Acetaminophen (*Crx) 10-325 Mg Tablet PO 1 tab Q4-6H PRN Administration Pain Calcium Carbonate 500 mg 07/13/25 13:05 07/13/25 14:09 Calcium Carbonate (Oscal) 500 Mg Tablet PO 08/13/25 13:04 500 mg DAILY NEYDA Administration Cyanocobalamin 1,000 mcg 07/13/25 13:05 07/13/25 14:10 Cyanocobalamin 1,000 Mcg Tablet PO 1,000 mcg DAILY NEYDA Administration Duloxetine HCl 60 mg 07/13/25 17:00 07/13/25 17:15 Duloxetine Hcl 60 Mg Capsule.Dr PO 60 mg BID NEYDA Administration Escitalopram Oxalate 20 mg 07/13/25 13:05 07/13/25 14:09 Escitalopram Oxalate 10 Mg Tablet PO 20 mg DAILY NEYDA Administration Levothyroxine Sodium 100 mcg/ 175 mcg 07/14/25 06:30 07/14/25 05:48 Levothyroxine Sodium 75 mcg PO 175 mcg DAILY@0630 NEYDA Administration Melatonin 3 mg 07/13/25 03:30 Melatonin 3 Mg Tablet PO HS PRN Sleep Metoprolol Tartrate 25 mg 07/13/25 21:00 07/13/25 20:12 Metoprolol Tartrate 25 Mg Tablet PO 25 mg Q12HR NEYDA Administration Perflutren Lipid Microsphere 0 ml 07/13/25 03:31 Perflutren Lipid Microspheres 1.5 Ml Vial Diluted To 10 Ml Total Volume IV PUSH 07/16/25 03:31 ONCE PRN adequate visualization Protocol Raloxifene HCl 60 mg 07/13/25 13:05 07/13/25 14:10 Raloxifene Hcl (*Chemo) 60 Mg Tablet PO 60 mg DAILY NEYDA Administration Solifenacin 10 mg 07/13/25 13:05 07/13/25 14:11 Solifenacin 5 Mg Tablet PO 10 mg QAM NEYDA Administration Sumatriptan Succinate 25 mg 07/13/25 12:09 Sumatriptan Succinate 25 Mg Tablet PO Q2H PRN Migraine Headache Trazodone HCl 100 mg 07/13/25 21:00 07/13/25 20:12 Trazodone Hcl 50 Mg Tablet PO 100 mg HS NEYDA Administration Vitamin D 25 mcg 07/13/25 13:05 07/13/25 14:10 Cholecalciferol (Vitamin D3) 25 Mcg (1,000 Units) Tablet PO 25 mcg DAILY NEYDA Administration Radiology Results: ITS Impressions Chest X-Ray 07/13/25 10:13 IMPRESSION: 1. No acute cardiopulmonary findings. Lexiscan Stress Test 07/14/25 12:51 IMPRESSION: 1. No definite ischemia or infarct. 2. Normal left ventricular ejection fraction measuring 62%. Labs Labs: Laboratory Results - last 24 hr 07/14/25 07/14/25 08:06 09:56 WBC 5.7 RBC 4.27 Hgb 13.3 Hct 40.2 MCV 94.1 MCH 31.1 MCHC 33.1 RDW 12.1 Plt Count 238 MPV 9.2 Immature Gran % (Auto) 0.2 Neut % (Auto) 57.6 Lymph % (Auto) 26.5 [place] % (Auto) 11.0 H Eos % (Auto) 4.2 Baso % (Auto) 0.5 Lymph # (Auto) 1.52 [place] # (Auto) 0.6 Eos # (Auto) 0.2 Baso # (Auto) 0.0 Abs Immat Gran (auto) 0.01 Absolute Neuts (auto) 3.3 Absolute Nucleated RBC 0.000 Nucleated RBC % 0.0 Sodium 138 Potassium 4.1 Chloride 110 H Carbon Dioxide 24 Anion Gap 4 BUN 15 Creatinine 0.88 Estim Creat Clear Calc 50 Estimated GFR > 60 Glucose 100 Calcium 8.8 Total Bilirubin 0.4 AST 23 ALT 13 Alkaline Phosphatase 57 Total Protein 6.9 Albumin 3.6 Quality VTE Prophylaxis VTE prophylaxis: mechanical ordered
[2025-07-14] MEDS: ACETAMINOPHEN/BUTALBITAL/CAFFEINE 325-50-40 MG TABLET (FIORICET) 2 TAB PO (14:20)
[2025-07-14] MEDS: RALOXIFENE HCL (*CHEMO) 60 MG TABLET PO (14:21)
[2025-07-14] MEDS: CHOLECALCIFEROL (VITAMIN D3) 25 MCG (1,000 UNITS) TABLET PO (14:21)
[2025-07-14] MEDS: SOLIFENACIN 5 MG TABLET 10 MG PO (14:21)
[2025-07-14] MEDS: CYANOCOBALAMIN 1,000 MCG TABLET 1000 MCG PO (14:21)
[2025-07-14] MEDS: DULoxetine HCL 60 MG CAPSULE.DR PO (14:21)
[2025-07-14] MEDS: CALCIUM CARBONATE (OSCAL) 500 MG TABLET PO (14:21)
[2025-07-14] MEDS: ESCITALOPRAM OXALATE 10 MG TABLET 20 MG PO (14:21)
[2025-07-14] MEDS: METOPROLOL TARTRATE 25 MG TABLET PO (14:21)
--- NOTE | 2025-07-14 14:21 | PM.DS ---
DS: Admitting Diagnosis Discharge Date 07/14/25 Admitting Diagnosis chest pain DS: Discharge Diagnosis Discharge Diagnosis (1) Chest pain: Qualifiers: Chest pain type: unspecified Qualified Code(s): R07.9 - Chest pain, unspecified Code(s): R07.9 - Chest pain, unspecified Status: Acute (2) Palpitations: Code(s): R00.2 - Palpitations Status: Acute (3) Hypothyroidism: Code(s): E03.9 - Hypothyroidism, unspecified Status: Acute DS: Summary Hospital Course Hospital Course: 70-year-old female presents to [facility] ER on 07/12/2025 complaining of chest tightness, shortness of breath, irregular heartbeat. This has happened over the past 2 weeks. No aggravating or relieving factors. Finally patient called the EMS and she was taken to [facility]. She left because she was not seen in time and presented [facility]. Patient has a history of chronic back pain, depression, fibromyalgia, hypothyroidism. EKG showing sinus rhythm. Potassium 3.5, magnesium 1.8. Telemetry demonstrating sinus rhythm. Serum creatinine 1.07 without baseline to compare. D-dimer 0.36. Chest x-ray showing no acute disease. TSH 0.045. Troponin negative x2. Due to atypical chest pain symptoms cardiology consulted. Echocardiogram and stress test ordered. Stress test came back without findings of ischemia and normal EF. Patient started on metoprolol 25 mg b.i.d. and event monitor placed at discharge. Follow-up with Cardiology outpatient. Time Spent with Patient Time attestation: Total time spent providing and/or coordinating discharge services: Exam Narrative: GENERAL: Comfortable, no acute distress HENMT: moist mucous membranes EYES: EOM intact b/l NECK: no lymphadenopathy RESPIRATORY: clear to auscultation, no increased respiratory effort CARDIO: Regular rate and rhythm GI: soft, nontender, bowel sounds present SKIN/EXTREMITIES: no rashes, no edema, no redness or tenderness NEURO: PROM intact, answers questions appropriately, A&O x4 DS: Data Data Completed and Pending Labs on day of discharge: Labs from last 24 hours 07/14/25 07/14/25 09:56 08:06 WBC 5.7 RBC 4.27 Hgb 13.3 Hct 40.2 MCV 94.1 MCH 31.1 MCHC 33.1 RDW 12.1 Plt Count 238 MPV 9.2 Immature Gran % (Auto) 0.2 Neut % (Auto) 57.6 Lymph % (Auto) 26.5 [place] % (Auto) 11.0 H Eos % (Auto) 4.2 Baso % (Auto) 0.5 Lymph # (Auto) 1.52 [place] # (Auto) 0.6 Eos # (Auto) 0.2 Baso # (Auto) 0.0 Abs Immat Gran (auto) 0.01 Absolute Neuts (auto) 3.3 Absolute Nucleated RBC 0.000 Nucleated RBC % 0.0 Sodium 138 Potassium 4.1 Chloride 110 H Carbon Dioxide 24 Anion Gap 4 BUN 15 Creatinine 0.88 Estim Creat Clear Calc 50 Estimated GFR > 60 Glucose 100 Calcium 8.8 Total Bilirubin 0.4 AST 23 ALT 13 Alkaline Phosphatase 57 Total Protein 6.9 Albumin 3.6 Discharge Plan Discharge Consulting providers: Tyler Castaneda Discharging Clinician: Manju Arshad Patient Disposition: Home Activity: as tolerated Diet: regular Discharge Instructions: Discharge disposition: Medications: Metoprolol 25 mg b.i.d. Event monitor on discharge Take medications as prescribed Monitor blood pressures Encouraged to continue with yearly vaccinations Return to the emergency department if he developed sudden shortness of breath, chest pain, nausea, vomiting, upset stomach or intractable diarrhea Return to the emergency department if you develop fever greater than 100.4 Follow-up with the primary care physician within 1-2 weeks Thank you for [facility] for your healthcare needs Patient Instructions: Antibiotic Form Patient Language: Ethiopian Stand Alone Forms: General Discharge Information Follow-up/Referrals: Tiffani,Paxton MICHAEL [Other] Discharge Medications: New metoprolol tartrate 25 mg Tablet 25 mg PO Q12HR Qty: 60 0RF Continued trazodone 100 mg tablet 100 mg PO HS duloxetine 60 mg capsule,delayed release(DR/EC) 60 mg PO BID escitalopram oxalate 20 mg tablet 20 mg PO DAILY hydrocodone-acetaminophen 10-325 mg tablet 1 tablet PO Q4-6H PRN (Reason: pain) zhksahywnc-zwgyqdydldehx-hukl 50-325-40 mg tablet 2 tablet PO Q4H PRN (Reason: headache) mometasone 0.1 % ointment 1 applic TOPICAL DAILY PRN (Reason: ECZEMA) raloxifene 60 mg tablet 60 mg PO DAILY solifenacin 10 mg tablet 10 mg PO DAILY sumatriptan succinate 25 mg tablet 25 mg PO Q2H PRN (Reason: migraine headache) calcium 500 mg tablet 500 mg PO DAILY cholecalciferol (vitamin D3) 25 mcg (1,000 unit) capsule 25 mcg PO DAILY biotin 10,000 mcg capsule 10,000 mcg PO DAILY melatonin 3 mg capsule 3 mg PO HS PRN (Reason: sleep) cyanocobalamin (vitamin B-12) 1,000 mcg capsule 1,000 mcg PO DAILY Changed levothyroxine 200 mcg tablet 175 mcg PO DAILY Qty: 30 0RF Other Ambulatory Orders: CA cardiac event monitor (Routine) Timeframe: 1 Month Location: [facility] Cardiology Ordered By: Melody Balderas Date of admission: 07/13/25 00:26 Primary Care Provider: Tiffani,Paxton MICHAEL Admitting Provider: Ann Burrell Attending physician on admission: Ann Burrell Condition: Stable
== END 2025-07-14 16:55 | disposition home or self-care (01) ==
LOC: ANHED 07-13 00:27 → ANH3MEDSUR 07-13 01:24
PROVIDERS: Internal Medicine Critical Care Medicine; Admitting Provider General Practice; Emergency Provider Student in an Organized Health Care Education/Training Program; Visit Provider General Practice
DX: R07.89 Other chest pain (principal); R00.2 Palpitations; E03.9 Hypothyroidism, unspecified; M54.9 Dorsalgia, unspecified; G89.29 Other chronic pain
CPT/HCPCS: 36415; 71046; 78452; 80048; 80053; 83690; 83735; 83880; 84439; 84443; 84480; 84484; 85025; 85027; 85380; 85610; 85730; 93005; 93017; 93306; 96374; 99285; A9270; A9502; G0378; J2405; J2785